=== PATIENT | male | born 1945 | race Caucasian/White ===

== ENCOUNTER 2016-12-05 08:25 | Emergency (ER) | payer OTHER ==
[~2016-12-05] VITALS: Ht 175.3 cm; Wt 77.0 kg
[~2016-12-05 08:25] MED LIST: AMLO2.5T PO; ASPI1TAB69 PO; ATOR1TAB18 PO; CHOL100025 CHEW; CLON0.2T PO; CLOP75TA PO; COEN200T PO; LORA-373 PO; LOSA25TA PO; MAGN200T PO; METO100T PO; OMEP40CA2 PO; POTA595T PO; SERT25TA83 PO; VITA500S3 SL
[2016-12-05 08:29] VITALS: BP 146/89; PULSE 83; RESP 16; TEMP 97.9; O2SAT 95
--- NOTE | 2016-12-05 09:08 | PD ---
HPI Chief Complaint: Skin Problem Time Seen by Provider: 08:54 Travel History International Travel<30 days: No Contact w/Intl Traveler<30days: No Traveled to known affect area: No History of Present Illness HPI This 71-year-old male is complaining of pain in his left leg. He says that about 2 weeks ago he banged his lower portion of his leg against the back of a motorcycle. He was quite painful at that time. Over a few days it seemed like the pain was getting better. He was able to walk on it. The area has become more painful and he has noted some redness around the site now. He has not had a fever at home though he says that the area affected feels warm. He has been told in the past that he has borderline diabetes. PFSH Past Medical History Hx Anticoagulant Therapy: Yes (PLAVIX) Arthritis: Yes Autoimmune Disease: No Anxiety: Yes Cancer: No Cardiac Catheterization: Yes Cardiovascular Problems: Yes (HTN, [place]) High Cholesterol: Yes Chest Pain: Yes Cerebrovascular Accident: Yes (TIA?) Coronary Artery Disease: Yes Diabetes: No Diminished Hearing: No Endocrine: No GERD: Yes Genitourinary: No Hypertension: Yes Immune Disorder: No Implanted Vascular Access Dvce: No Kidney Stones: Yes Psychiatric: No Reproductive: No Respiratory: Yes Myocardial Infarction: Yes (2011) Sleep Apnea: Yes (HAS AN APPOINTMENT W/ CARYL ) Thyroid Disease: No Past Surgical History Abdominal Surgery: Yes Cardiac Surgery: Yes (CARDIAC STENT PLACEMENT 4 YEARS AGO, CAROTID ENDARECTOMY ) Coronary Stent: Yes (2011 one stent) Genitourinary Surgery: Yes (PROSTATE) Hysterectomy: Yes Other Surgery: Yes ( LEFT INGUINAL HERNIA REPAIR) Social History Alcohol Use: Yes ("A BEER EVERY NOW AND THEN") Tobacco Use: No (QUIT: 2011) Substance Use: No Allergies-Medications (Allergen,Severity, Reaction): Coded Allergies: Lortab (Verified Allergy, Severe, Anaphylaxis, 12/05/16) Percocet (Verified Allergy, Unknown, 12/05/16) Reported Meds & Prescriptions Reported Meds & Active Scripts Active Bactrim DS (Sulfamethoxazole-Trimethoprim) 800-160 Mg Tab 1 Tab PO BID Keflex (Cephalexin) 500 Mg Cap 500 Mg PO Q6H Reported Clonidine (Clonidine HCl) 0.2 Mg Tab 0.2 Mg PO BID PRN Omeprazole 40 Mg Cap 40 Mg PO DAILY Lorazepam 0.5 Mg Tab 0.5 Mg PO HS PRN Magnesium 200 Mg Tab 200 Mg PO DAILY Potassium Gluconate 595 Mg Tab 595 Tab PO DAILY Amlodipine (Amlodipine Besylate) 2.5 Mg Tab 2.5 Mg PO DAILY Atorvastatin (Atorvastatin Calcium) 80 Mg Tab 80 Mg PO HS Clopidogrel (Clopidogrel Bisulfate) 75 Mg Tab 75 Mg PO DAILY Metoprolol Tartrate 100 Mg Tab 100 Mg PO BID Coenzyme Q10 (Ubidecarenone) 200 Mg Tab 200 Mg PO DAILY Vitamin D3 (Cholecalciferol) 1,000 Unit Chew 1,000 Units CHEW DAILY Vitamin B-12 (Cyanocobalamin) 500 Mcg Subl 500 Mcg SL DAILY Aspirin 81 Mg Tabdr 81 Mg PO DAILY Sertraline (Sertraline HCl) 25 Mg Tab 25 Mg PO DAILY Losartan (Losartan Potassium) 25 Mg Tab 25 Mg PO DAILY Review of Systems General / Constitutional: No: Fever, Chills Eyes: No: Diploplia, Blurred Vision HENT: No: Headaches Cardiovascular: No: Chest Pain or Discomfort, Palpitations Respiratory: No: Cough, Shortness of Breath Gastrointestinal: No: Vomiting Genitourinary: No: Urgency, Frequency Musculoskeletal: No: Myalgias Skin: Positive Rash Neurologic: No: Dizziness Hematologic/Lymphatic: No: Easy Bruising Physical Exam Narrative GENERAL: Well-developed male SKIN: Warm and dry. HEAD: Atraumatic. Normocephalic. EYES: Pupils equal and round. No scleral icterus. No injection or drainage. ENT: No nasal bleeding or discharge. Mucous membranes pink and moist. NECK: Trachea midline. No JVD. CARDIOVASCULAR: Regular rate and rhythm. No murmur appreciated. RESPIRATORY: No accessory muscle use. Clear to auscultation. Breath sounds equal bilaterally. GASTROINTESTINAL: Abdomen soft, non-tender, nondistended. Hepatic and splenic margins not palpable. MUSCULOSKELETAL: No obvious deformities. No clubbing. No cyanosis. No edema. The left lower leg at the affected extremity. There is a small abrasion over the anterior portion of the distal tibia. There is surrounding erythema and warmth and an area about 10 cm in diameter NEUROLOGICAL: Awake and alert. No obvious cranial nerve deficits. Motor grossly within normal limits. Normal speech. PSYCHIATRIC: Appropriate mood and affect; insight and judgment normal. Data Data Last Documented VS Vital Signs Date Time Temp Pulse Resp B/P Pulse Ox O2 Delivery O2 Flow Rate FiO2 12/05/16 09:22 75 16 165/84 95 Room Air 12/05/16 08:29 97.9 Orders Complete Blood Count With Diff (12/05/16 09:00) Basic Metabolic Panel (Bmp) (12/05/16 09:00) Tibia/Fibula (Ap/Lat) (12/05/16 09:00) Labs Laboratory Tests Test 12/05/16 09:15 White Blood Count 6.9 TH/MM3 Red Blood Count 4.47 MIL/MM3 Hemoglobin 14.3 GM/DL Hematocrit 43.0 % Mean Corpuscular Volume 96.1 FL Mean Corpuscular Hemoglobin 31.9 PG Mean Corpuscular Hemoglobin 33.2 % Concent Red Cell Distribution Width 12.8 % Platelet Count 187 TH/MM3 Mean Platelet Volume 7.1 FL Neutrophils (%) (Auto) 65.1 % Lymphocytes (%) (Auto) 23.7 % Monocytes (%) (Auto) 9.5 % Eosinophils (%) (Auto) 1.0 % Basophils (%) (Auto) 0.7 % Neutrophils # (Auto) 4.5 TH/MM3 Lymphocytes # (Auto) 1.6 TH/MM3 Monocytes # (Auto) 0.7 TH/MM3 Eosinophils # (Auto) 0.1 TH/MM3 Basophils # (Auto) 0.0 TH/MM3 CBC Comment DIFF FINAL Differential Comment Sodium Level 146 MEQ/L Potassium Level 4.5 MEQ/L Chloride Level 110 MEQ/L Carbon Dioxide Level 27.9 MEQ/L Anion Gap 8 MEQ/L Blood Urea Nitrogen 20 MG/DL Random Glucose 95 MG/DL Calcium Level 8.3 MG/DL [facility] Medical Decision Making Medical Screen Exam Complete: Yes Emergency Medical Condition: Yes Medical Record Reviewed: Yes Differential Diagnosis Differential includes cellulitis left leg, soft tissue injury, fracture Narrative Course X-rays negative for fracture. White count is only 6000. Impression is cellulitis of the left leg. He will be placed on Keflex and Bactrim. His blood sugar is normal Diagnosis Primary Impression: Cellulitis of left lower extremity Scripts Sulfamethoxazole-Trimethoprim (Bactrim DS)800-160 Mg Tab1 Tab PO BID #14 TAB Ref 0 Prov:Aaron Junior MD 12/05/16 Cephalexin (Keflex)500 Mg [id number] Mg PO Q6H #28 CAP Ref 0 Prov:MacMahon,Aaron MD 12/05/16 Disposition: 01 DISCHARGE HOME Condition: Stable Aaron Juinor MD Dec 05, 2016 09:08
[2016-12-05 09:22] VITALS: BP 165/84; PULSE 75; RESP 16; O2SAT 95
[2016-12-05 09:27] LABS: AUTOMATED NEUTROPHIL # 4.5 TH/MM3 (1.8-7.7); BASOPHIL % 0.7 % (0.0-2.0); EOSINOPHIL # 0.1 TH/MM3 (0-0.4); HEMO FLAGS DIFF FINAL; LYMPH % 23.7 % (9.0-44.0); LYMPHOCYTE # 1.6 TH/MM3 (1.0-4.8); MEAN CELL VOLUME 96.1 FL (80.0-100.0); MEAN CORPUSCULAR HEMOGLOBIN 31.9 PG (27.0-34.0); MEAN CORPUSCULAR HGB CONC 33.2 % (32.0-36.0); MONO % 9.5 % (0.0-8.0); NEUT % 65.1 % (16.0-70.0); PLATELET COUNT 187 TH/MM3 (150-450); RED BLOOD COUNT 4.47 MIL/MM3 (4.50-5.90); RED CELL DISTRIBUTION WIDTH 12.8 % (11.6-17.2); WHITE BLOOD COUNT 6.9 TH/MM3 (4.0-11.0)
--- NOTE | 2016-12-05 09:31 | RADHPO ---
EXAM DATE/TIME: 12/05/2016 09:18 [facility] COMPARISON: No previous studies available for comparison. INDICATIONS : Left lower leg laceration and pain, hit leg on sharp edge 2 weeks ago. MEDICAL HISTORY : None. SURGICAL HISTORY : None. ENCOUNTER: Initial ACUITY: 2 weeks PAIN SCORE: 1/10 LOCATION: Left lower tibia FINDINGS: Two view examination of the left tibia demonstrates no evidence of fracture or dislocation. Bony min eralization is normal. The soft tissue structures are intact. CONCLUSION: Negative for acute process. Vishnu Gage MD FACR on December 05, 2016 at 9:29 Board Certified Radiologist. This report was verified electronically.
[2016-12-05] MEDS ORDERED: BACT800T5 PO (09:41)
[2016-12-05] MEDS ORDERED: CEPH-460 PO (09:41)
[2016-12-05 10:04] LABS: BICARBONATE 27.9 MEQ/L (21.0-32.0); POTASSIUM 4.5 MEQ/L (3.5-5.1)
== END 2016-12-05 10:18 | disposition home or self-care (01) ==
LOC: PHED 08:25
DX: L03.116 Cellulitis of left lower limb (principal); Z79.01 Long term (current) use of anticoagulants; I10 Essential (primary) hypertension; I25.10 Atherosclerotic heart disease of native coronary artery without angina pectoris; I25.2 Old myocardial infarction; E78.00 Pure hypercholesterolemia, unspecified; W22.8XXA Striking against or struck by other objects, initial encounter
CPT/HCPCS: 73590; 80048; 85025; 99283

== ENCOUNTER 2016-12-31 09:43 | Inpatient (IN) | payer OTHER, MEDICARE ==
[2016-12-31] VITALS (10 sets, daily range): BP systolic 134–166; BP diastolic 70–84; PULSE 90–110; RESP 16–20; TEMP 96.5–99.3; O2SAT 88–96
[~2016-12-31] VITALS: Ht 175.3 cm; Wt 72.2 kg
[~2016-12-31 09:43] MED LIST changes: +BACT800T5 PO; +CEPH-460 PO
--- NOTE | 2016-12-31 10:26 | PD ---
HPI Chief Complaint: Respiratory Symptoms Time Seen by Provider: 10:07 Travel History International Travel<30 days: No Contact w/Intl Traveler<30days: No Traveled to known affect area: No History of Present Illness HPI This is a 71 year old male who presents to the emergency department with congestion, cough, and no appetite. His girlfriend was here one week ago with similar symptoms and was sent home with cold medicine told she didn't have pneumonia. He reports he has had a persistent productive cough with yellow sputum, associated with some subjective fevers, chills, and loose stools. He has been sick for about a week. He reports he has had no appetite and feels weak. Pt. does have 45 pack year smoking history. PFSH Past Medical History Hx Anticoagulant Therapy: Yes Arthritis: Yes Autoimmune Disease: No Anxiety: Yes Depression: Yes Cancer: No Cardiac Catheterization: Yes Cardiovascular Problems: Yes (htn on meds, [place] x 1 with one stent) High Cholesterol: Yes Chest Pain: Yes Cerebrovascular Accident: Yes (TIA?) Coronary Artery Disease: Yes Diabetes: No (borderline ) Diminished Hearing: No Endocrine: No GERD: Yes Genitourinary: No Hypertension: Yes Immune Disorder: No Implanted Vascular Access Dvce: No Kidney Stones: Yes Psychiatric: No Reproductive: No Respiratory: Yes Myocardial Infarction: Yes (2011) Sleep Apnea: Yes Thyroid Disease: No Past Surgical History Abdominal Surgery: Yes Cardiac Surgery: Yes (CARDIAC STENT PLACEMENT 4 YEARS AGO, CAROTID ENDARECTOMY ) Coronary Stent: Yes (2011 one stent) Genitourinary Surgery: Yes (PROSTATE) Hysterectomy: Yes Other Surgery: Yes ( LEFT INGUINAL HERNIA REPAIR) Social History Alcohol Use: Yes ("A BEER EVERY NOW AND THEN") Tobacco Use: No (QUIT: 2011) Substance Use: No Allergies-Medications (Allergen,Severity, Reaction): Coded Allergies: Lortab (Verified Allergy, Severe, Anaphylaxis, 12/31/16) Percocet (Verified Allergy, Unknown, 12/31/16) Reported Meds & Prescriptions Reported Meds & Active Scripts Active Reported Clonidine (Clonidine HCl) 0.2 Mg Tab 0.2 Mg PO BID PRN Omeprazole 40 Mg Cap 40 Mg PO DAILY Lorazepam 0.5 Mg Tab 0.5 Mg PO HS PRN Magnesium 200 Mg Tab 200 Mg PO HS Potassium Gluconate 595 Mg Tab 595 Tab PO HS Amlodipine (Amlodipine Besylate) 2.5 Mg Tab 2.5 Mg PO HS Atorvastatin (Atorvastatin Calcium) 80 Mg Tab 80 Mg PO HS Clopidogrel (Clopidogrel Bisulfate) 75 Mg Tab 75 Mg PO HS Metoprolol Tartrate 100 Mg Tab 100 Mg PO BID Coenzyme Q10 (Ubidecarenone) 200 Mg Tab 200 Mg PO DAILY Vitamin D3 (Cholecalciferol) 1,000 Unit Chew 1,000 Units CHEW DAILY Vitamin B-12 (Cyanocobalamin) 500 Mcg Subl 750 Mcg SL DAILY Aspirin 81 Mg Tabdr 81 Mg PO DAILY Sertraline (Sertraline HCl) 25 Mg Tab 25 Mg PO DAILY Losartan (Losartan Potassium) 25 Mg Tab 50 Mg PO DAILY Review of Systems Except as stated in HPI: all other systems reviewed are Neg Physical Exam Narrative GENERAL:Well appearing, no acute distress SKIN: Warm and dry. HEAD: Atraumatic. Normocephalic. EYES: Pupils equal and round. No injection or drainage. ENT: Moist mucous membranes NECK: Trachea midline. CARDIOVASCULAR: Regular rate and rhythm. No murmur appreciated. RESPIRATORY: Clear to auscultation. Breath sounds equal bilaterally. GASTROINTESTINAL: Abdomen soft, non-tender, nondistended. MUSCULOSKELETAL: No obvious deformities. NEUROLOGICAL: Awake and alert. No obvious cranial nerve deficits. Moving all extremities. PSYCHIATRIC: Appropriate mood and affect; insight and judgment normal. Data Data Last Documented VS Vital Signs Date Time Temp Pulse Resp B/P Pulse Ox O2 Delivery O2 Flow Rate FiO2 12/31/16 12:00 88 Nasal Cannula 3 12/31/16 11:27 112 20 12/31/16 11:26 98.4 166/74 Orders Chest, Pa & Lat (12/31/16 ) Basic Metabolic Panel (Bmp) (12/31/16 10:34) Complete Blood Count With Diff (12/31/16 10:34) Ecg Monitoring (12/31/16 10:34) Iv Access Insert/Monitor (12/31/16 10:34) Oximetry (12/31/16 10:34) Oxygen Administration (12/31/16 10:34) Methylprednisolone So Succ Inj (Solumedr (12/31/16 10:45) Albuterol-Ipratropium Neb (Duoneb Neb) (12/31/16 10:45) Sodium Chloride 0.9% Flush (Ns Flush) (12/31/16 10:45) B-Type Natriuretic Peptide (12/31/16 10:34) Ct Pulmonary Angiogram (12/31/16 ) Iohexol 350 Inj (Omnipaque 350 Inj) (12/31/16 13:15) Labs Laboratory Tests Test 12/31/16 10:35 White Blood Count 4.7 TH/MM3 Red Blood Count 4.02 MIL/MM3 Hemoglobin 13.1 GM/DL Hematocrit 38.5 % Mean Corpuscular Volume 95.7 FL Mean Corpuscular Hemoglobin 32.6 PG Mean Corpuscular Hemoglobin 34.1 % Concent Red Cell Distribution Width 12.6 % Platelet Count 141 TH/MM3 Mean Platelet Volume 7.2 FL Neutrophils (%) (Auto) 58.5 % Lymphocytes (%) (Auto) 25.7 % Monocytes (%) (Auto) 15.1 % Eosinophils (%) (Auto) 0.1 % Basophils (%) (Auto) 0.6 % Neutrophils # (Auto) 2.8 TH/MM3 Lymphocytes # (Auto) 1.2 TH/MM3 Monocytes # (Auto) 0.7 TH/MM3 Eosinophils # (Auto) 0.0 TH/MM3 Basophils # (Auto) 0.0 TH/MM3 CBC Comment DIFF FINAL Differential Comment Sodium Level 142 MEQ/L Potassium Level 4.1 MEQ/L Chloride Level 108 MEQ/L Carbon Dioxide Level 25.6 MEQ/L Anion Gap 8 MEQ/L Blood Urea Nitrogen 23 MG/DL Creatinine 1.10 MG/DL Estimat Glomerular Filtration 66 ML/MIN Rate Random Glucose 90 MG/DL Calcium Level 8.1 MG/DL B-Type Natriuretic Peptide 15 PG/ML MDM Medical Decision Making Medical Screen Exam Complete: Yes Emergency Medical Condition: Yes Interpretation(s) Afebrile, tachycardic, hypertensive, hypoxic No leukocytosis Monocytic shift Electrolytes within normal limits BNP is 15 Differential Diagnosis COPD exacerbation, congestive heart failure, pneumonia, pulmonary embolism, pulmonary hypertension Narrative Course This is a 71-year-old male who presents to the emergency department with cough, some hemoptysis and some shortness of breath. Patient is hypoxic on room air to 88%. He was placed in a monitor and an IV was established. Labs are obtained which were all reassuring with a monocytic shift to suggest viral etiology of his symptoms. Chest x-ray was negative for acute infiltrate. His vital signs seemed to be disproportionate to his physical exam findings I did obtain a CT pulmonary angiogram which was negative for PE or occult pneumonia. Patient was treated with steroids and DuoNeb's but despite this continued to be hypoxic particularly after ambulation. Patient will be admitted for COPD exacerbation. Diagnosis Primary Impression: COPD exacerbation Admitting Information Admitting Physician Requests: Admit Lisette Serrato MD Dec 31, 2016 10:25
[2016-12-31] MEDS ORDERED: methylPREDNISolone SOD SUCC 125 MG/2 ML VIAL IVP ONE (10:45)
[2016-12-31] MEDS ORDERED: SODIUM CHLORIDE 0.9% FLUSH 5 ML FLUSH IVF PRN ×2 (10:45→14:45)
[2016-12-31] MEDS: RESP: ALBUTEROL 2.5 MG/IPRATROPIUM 0.5 MG NEB (SCH) INH ×4 (10:46→23:45)
[2016-12-31 10:53] LABS: AUTOMATED NEUTROPHIL # 2.8 TH/MM3 (1.8-7.7); BASOPHIL % 0.6 % (0.0-2.0); EOSINOPHIL % 0.1 % (0.0-4.0); HEMATOCRIT 38.5 % (39.0-51.0); HEMO FLAGS DIFF FINAL; LYMPH % 25.7 % (9.0-44.0); LYMPHOCYTE # 1.2 TH/MM3 (1.0-4.8); MEAN CELL VOLUME 95.7 FL (80.0-100.0); MEAN CORPUSCULAR HEMOGLOBIN 32.6 PG (27.0-34.0); MEAN CORPUSCULAR HGB CONC 34.1 % (32.0-36.0); MONO % 15.1 % (0.0-8.0); NEUT % 58.5 % (16.0-70.0); PLATELET COUNT 141 TH/MM3 (150-450); RED BLOOD COUNT 4.02 MIL/MM3 (4.50-5.90); RED CELL DISTRIBUTION WIDTH 12.6 % (11.6-17.2); WHITE BLOOD COUNT 4.7 TH/MM3 (4.0-11.0)
[2016-12-31 10:59] LABS: POTASSIUM 4.1 MEQ/L (3.5-5.1)
[2016-12-31 11:01] LABS: BICARBONATE 25.6 MEQ/L (21.0-32.0)
--- NOTE | 2016-12-31 12:23 | RADHPO ---
EXAM DATE/TIME: 12/31/2016 11:36 [facility] COMPARISON: CHEST SINGLE AP, June 19, 2016, 21:48. INDICATIONS : Short of breath MEDICAL HISTORY : Heart attack SURGICAL HISTORY : Cardiac stent ENCOUNTER: Initial ACUITY: 4 - 6 days PAIN SCORE: 2/10 LOCATION: Bilateral chest FINDINGS: PA and lateral views of the chest demonstrate linear atelectasis or scarring at the lung bases. No ef fusion. No pneumothorax. Heart size normal. Tortuous aorta. CONCLUSION: 1. Linear atelectasis or scarring at the lung bases. No effusion. Findings similar to May 2016. Gary Bailey MD on December 31, 2016 at 12:20 Board Certified Radiologist. This report was verified electronically.
[2016-12-31] MEDS ORDERED: IOHEXOL 350 MG/ML 10 ML VIAL (for RAD DIAG) IV ONE (13:15)
--- NOTE | 2016-12-31 13:21 | RADHPO ---
EXAM DATE/TIME: 12/31/2016 13:05 [facility] COMPARISON: No previous studies available for comparison. INDICATIONS : Cough and congestion. Evaluate for embolism. IV CONTRAST: 65 cc Omnipaque 350 (iohexol) IV RADIATION DOSE: 11.67 CTDIvol (mGy) MEDICAL HISTORY : Hypertension. Cardiovascular disease SURGICAL HISTORY : Coronary artery stent. Carotid endarterectomy. ENCOUNTER: Initial ACUITY: 4 - 6 days PAIN SCALE: 0/10 LOCATION: chest TECHNIQUE: Volumetric scanning of the chest was performed using a pulmonary embolism protocol MIP images were re constructed. Using automated exposure control and adjustment of the mA and/or kV according to patien t size, radiation dose was kept as low as reasonably achievable to obtain optimal diagnostic quality images. FINDINGS: Mild peribronchial thickening is present worse in the right lower lobe suggesting chronic bronchitis. Minimal left lingular disease is noted. There is no axillary adenopathy. There is very minimal mediastinal adenopathy. The largest node heather sures 1 cm. There is no central pulmonary emboli. The portion of the liver and spleen identified are free of focal defects. Granulomas are present in the spleen. CONCLUSION: Negative for central pulmonary emboli. Minimal nonspecific mediastinal adenopathy. Vishnu Gage MD FACR on December 31, 2016 at 13:18 Board Certified Radiologist. This report was verified electronically.
[2016-12-31] MEDS ORDERED: AZITHROMYCIN 250 MG TAB PO ONE ×3 (14:00→15:02)
[2016-12-31] MEDS ORDERED: RESP: ALBUTEROL 2.5 MG/3 ML NEB (PRN) INH (14:45)
[2016-12-31] MEDS ORDERED: LORazepam 0.5 MG TAB PO PRN (14:45)
[2016-12-31] MEDS ORDERED: PILL SPLITTER OTHER PRN (15:15)
[2016-12-31] MEDS ORDERED: ENOXAPARIN SODIUM 40 MG/0.4 ML SYRINGE SQ SCH (16:00)
[2016-12-31 17:34] LABS: BLOOD GAS CARBOXYHEMOGLOBIN 1.5 % (0-4); BLOOD GAS HCO3 21 mmol/L (22-26); BLOOD GAS METHEMOGLOBIN 1.1 % (0-2); BLOOD GAS O2 HGB SATURATION 89 % (90-100); BLOOD GAS OXYGEN CONTENT 17.3 Vol % (12.0-20.0); BLOOD GAS PCO2 34 mmHG (38-42); BLOOD GAS PO2 63 mmHG (61-120); BLOOD GAS TOTAL HGB 13.9 G/DL (12.0-16.0); TEMP CORR TO 98.6
--- NOTE | 2016-12-31 17:34 | HHI.HP ---
[facility] Primary [facility] Physician John Crandall MD Admission Diagnosis copd exacerbation Diagnoses: (1) Hypoxia Diagnosis: Principal (2) Cough Diagnosis: Principal (3) Hypertension (4) Hyperlipidemia Diagnosis: Secondary (5) Coronary artery disease Diagnosis: Secondary Chief Complaint: Cough, congestion Travel History International Travel<30 Days: No Contact w/Intl Traveler <30 Da: No Traveled to Known Affected Are: No History of Present Illness 71-year-old male with known history of hypertension, coronary artery disease, hyperlipidemia, history of tobacco use who presented to hospital because of cough and congestion. Patient states her last 6 days he has had upper respiratory symptoms to include cough, congestion, phlegm production. He had caught the cold because his girlfriend had went to the ER and got treated for upper respiratory infection and he thought that he caught it from her. The patient did go to local pharmacy recommended cold medication that would not interfere in his blood pressure. He states while using that medication he had an episode where he states that his blood pressure did drop. But because the patient had continued cough, congestion and green phlegm production without any improvement he came to emergency department for evaluation. Patient had complete workup which did not indicate any fever, no leukocytosis, chest x-rays without any abnormality, CT scan is without any abnormality. Documentation in the ER does indicate that there was an episode of hypoxia of O2 sat of 88%. Because of that reason is recommended by the ER doctor that the patient be admitted for further evaluation and management. Patient denies any fever, chills, shortness of breath, dyspnea, chest pain, abdominal pain, nausea, vomiting, diarrhea, constipation. Review of Systems Constitutional: DENIES: Diaphoretic episodes, Fatigue, Fever, Weight gain, Weight loss, Chills, Dizziness, Change in appetite, Night Sweats Eyes: DENIES: Blurred vision, Diplopia, Eye inflammation, Eye pain, Vision loss , Double Vision Ears, nose, mouth, throat: DENIES: Vertigo, Nasal discharge, Throat pain, Ear Pain, Running Nose, Sinus Pain Respiratory: COMPLAINS OF: Cough, Sputum production, DENIES: Apneas, Snoring, Wheezing, Hemoptysis, Shortness of breath Cardiovascular: DENIES: Chest pain, Palpitations, Syncope, Dyspnea on Exertion , Lower Extremity Edema, Orthopnea Gastrointestinal: DENIES: Abdominal pain, Black stools, Bloody stools, Constipation, Diarrhea, Nausea, Vomiting, Difficulty Swallowing, Anorexia Neurologic: DENIES: Abnormal gait, Headache, Localized weakness, Paresthesias, Seizures, Speech Problems, Tremor, Poor Balance Past Family Social History Past Medical History Hypertension Hyperlipidemia Coronary artery disease Carotid artery disease Benign prostatic hypertrophy Past Surgical History Cardiac catheterization with stenting Left carotid endarterectomy Left inguinal heart repair TURP Reported Medications Reported Meds & Active Scripts Active Reported Clonidine (Clonidine HCl) 0.2 Mg Tab 0.2 Mg PO BID PRN Omeprazole 40 Mg Cap 40 Mg PO DAILY Lorazepam 0.5 Mg Tab 0.5 Mg PO HS PRN Magnesium 200 Mg Tab 200 Mg PO HS Potassium Gluconate 595 Mg Tab 595 Tab PO HS Amlodipine (Amlodipine Besylate) 2.5 Mg Tab 2.5 Mg PO HS Atorvastatin (Atorvastatin Calcium) 80 Mg Tab 80 Mg PO HS Clopidogrel (Clopidogrel Bisulfate) 75 Mg Tab 75 Mg PO HS Metoprolol Tartrate 100 Mg Tab 100 Mg PO BID Coenzyme Q10 (Ubidecarenone) 200 Mg Tab 200 Mg PO DAILY Vitamin D3 (Cholecalciferol) 1,000 Unit Chew 1,000 Units CHEW DAILY Vitamin B-12 (Cyanocobalamin) 500 Mcg Subl 750 Mcg SL DAILY Aspirin 81 Mg Tabdr 81 Mg PO DAILY Sertraline (Sertraline HCl) 25 Mg Tab 25 Mg PO DAILY Losartan (Losartan Potassium) 25 Mg Tab 50 Mg PO DAILY Allergies: Coded Allergies: Lortab (Verified Allergy, Severe, Anaphylaxis, 12/31/16) Percocet (Verified Allergy, Unknown, 12/31/16) Family History Reviewed is significant for mother having Alzheimer's, father and brother with kidney disease Social History Patient quit smoking 8 years ago, prior to that he smoked one pack a cigarettes a day since he was 19 years all. Denies any alcohol or illicit drugs Physical Exam Vital Signs Vital Signs Date Time Temp Pulse Resp B/P Pulse Ox O2 Delivery O2 Flow Rate FiO2 12/31/16 15:44 90 20 153/76 95 Nasal Cannula 3 12/31/16 14:25 92 20 135/72 93 Nasal Cannula 3 12/31/16 12:00 88 Nasal Cannula 3 12/31/16 11:27 112 20 95 Nasal Cannula 2 12/31/16 11:26 98.4 110 20 166/74 95 Room Air 12/31/16 10:49 96 Nasal Cannula 2.00 12/31/16 10:45 95 Nasal Cannula 2 12/31/16 10:45 95 Nasal Cannula 2 12/31/16 10:04 92 16 93 Room Air 12/31/16 09:50 99.3 98 16 134/84 89 Physical Exam GENERAL: Well-developed, well-nourished, in no acute distress. alert and orientated HEENT: Head is normocephalic without any lesions or masses noted. Facial features are symmetric. Eyes: Pupils equal round reactive to light. Extraocular muscles are intact. Conjunctivae were clear. Oropharyngeal: Pharynx without any erythema edema. Tongue is midline without deviation. Buccal mucosa is moist without any masses or lesions NECK: Supple without any masses. Trachea midline no deviation. No JVD, no bruits are appreciated CARDIAC: Regular rhythm, regular rate. S1/S2 are heard. No murmurs gallops or rubs. LUNGS: Clear to auscultation bilaterally. No wheeze, rhonchi or rales. No use of accessory muscles on inspiration or expiration. ABDOMEN: Soft, nontender. Nondistended. Bowel sounds heard in all 4 quadrants. No organomegaly or masses. Negative rebound, negative guarding EXTREMITIES: No edema, pulses are equal bilaterally. No cyanosis or clubbing NEUROLOGY: Mood and affect appear appropriate. Cranial nerves II through XII grossly intact. Muscle strength 5/5 in upper and lower extremities bilaterally. Deep tendon reflexes are 2+ in upper and lower extremities bilaterally. Laboratory Laboratory Tests Test 12/31/16 10:35 White Blood Count 4.7 Red Blood Count 4.02 Hemoglobin 13.1 Hematocrit 38.5 Mean Corpuscular Volume 95.7 Mean Corpuscular Hemoglobin 32.6 Mean Corpuscular Hemoglobin 34.1 Concent Red Cell Distribution Width 12.6 Platelet Count 141 Mean Platelet Volume 7.2 Neutrophils (%) (Auto) 58.5 Lymphocytes (%) (Auto) 25.7 Monocytes (%) (Auto) 15.1 Eosinophils (%) (Auto) 0.1 Basophils (%) (Auto) 0.6 Neutrophils # (Auto) 2.8 Lymphocytes # (Auto) 1.2 Monocytes # (Auto) 0.7 Eosinophils # (Auto) 0.0 Basophils # (Auto) 0.0 CBC Comment DIFF FINAL Differential Comment Sodium Level 142 Potassium Level 4.1 Chloride Level 108 Carbon Dioxide Level 25.6 Anion Gap 8 Blood Urea Nitrogen 23 Creatinine 1.10 Estimat Glomerular Filtration 66 Rate Random Glucose 90 Calcium Level 8.1 B-Type Natriuretic Peptide 15 Result Diagram: 12/31/16 1035 12/31/16 1035 Imaging Last Impressions Chest X-Ray 12/31/16 0000 Signed Impressions: Service Date/Time: Saturday, December 31, 2016 11:36 - CONCLUSION: 1. Linear atelectasis or scarring at the lung bases. No effusion. Findings similar to May 2016. Gary Bailey MD CT Angiography 12/31/16 0000 Signed Impressions: Service Date/Time: Saturday, December 31, 2016 13:05 - CONCLUSION: Negative for central pulmonary emboli. Minimal nonspecific mediastinal adenopathy. Vishnu Gage MD FACR Assessment and Plan Assessment and Plan Hypoxia, unknown etiology Reviewing medical records and emergency department are quite conflicting with O2 saturations of 93% on room air, and 88% on 3 L. We'll check arterial blood gas Chest x-ray does indicate some atelectasis or scarring in the lung bases Chest CT shows peribronchial thickening right lobe suggesting chronic bronchitis Start incentive spirometry Chronic bronchitis Could have some underlying COPD, will need outpatient follow-up with primary medical doctor and forestry technical officer for PFT Continue duo nebs Start Mucinex Continue O2 supplementation maintain O2 sats greater 92% Continue Solu-Medrol 60 mg every 6 hours Hypertension, hyperlipidemia, coronary artery disease Continue home medications DVT prevention Lovenox Written by Collin Londono PA-C, acting as scribe for Dr. Bailey on 12/31/16 at 1710. The documentation accurately reflects the work and decisions performed face-to- face by Dr. Bailey on 12/31/16 at 1710. Physician Certification 2 Midnight Certification Type: Admission for Inpatient Services Order for Inpatient Services The services are ordered in accordance with Medicare regulations or non- Medicare payer requirements, as applicable. In the case of services not specified as inpatient-only, they are appropriately provided as inpatient services in accordance with the 2-midnight benchmark. Estimated LOS (days): 2 days is the estimated time the patient will need to remain in the hospital, assuming treatment plan goals are met and no additional complications. Post-Hospital Plan: Home Problem Qualifiers (1) Hypertension: Qualified Code: I15.9 - Secondary hypertension (2) Hyperlipidemia: Qualified Code: E78.5 - Hyperlipidemia, unspecified hyperlipidemia type (3) Coronary artery disease: Qualified Code: I25.10 - Coronary artery disease, angina presence unspecified, unspecified vessel or lesion type, unspecified whether ambler or transplanted heart Collin Londono Dec 31, 2016 17:34 Antonette Bailey MD Jan 01, 2017 08:14
[2016-12-31 17:35] LABS: CRITICAL VALUE YES; DRAW SITE LT RADIAL; FIO2 21 %; NUMBER OF ARTERIAL PUNCTURES 1; STAT YES; ULNAR PULSE PRESENT
[2016-12-31] MEDS: methylPREDNISolone SOD SUCC 125 MG/2 ML VIAL IVP SCH ×2 (18:16→23:04)
[2016-12-31] MEDS ORDERED: amLODIPine BESYLATE 5 MG TAB PO SCH (21:00)
[2016-12-31] MEDS ORDERED: CLOPIDOGREL 75 MG TAB PO SCH (21:00)
[2016-12-31] MEDS ORDERED: ATORVASTATIN 40 MG TAB PO SCH (21:00)
[2016-12-31] MEDS: guaiFENesin E.R. 600 MG TAB PO SCH (21:07)
[2016-12-31] MEDS: METOPROLOL TARTRATE 100 MG TAB PO SCH (21:07)
[2016-12-31] MEDS: SODIUM CHLORIDE 0.9% FLUSH 5 ML FLUSH IVF SCH (21:10)
[2017-01-01] VITALS: BP 128/76; PULSE 64; RESP 20; TEMP 96; O2SAT 95
[2017-01-01] MEDS: RESP: ALBUTEROL 2.5 MG/IPRATROPIUM 0.5 MG NEB (SCH) INH ×3 (04:19→11:38)
[2017-01-01] MEDS: methylPREDNISolone SOD SUCC 125 MG/2 ML VIAL IVP SCH ×2 (05:13→10:20)
[2017-01-01 08:00] VITALS: BP 139/82; PULSE 83; RESP 18; TEMP 96.9; O2SAT 92
[2017-01-01 08:08] VITALS: O2SAT 90
[2017-01-01] MEDS: SODIUM CHLORIDE 0.9% FLUSH 5 ML FLUSH IVF SCH (08:49)
[2017-01-01] MEDS: METOPROLOL TARTRATE 100 MG TAB PO SCH (08:50)
[2017-01-01] MEDS ORDERED: PANTOPRAZOLE SOD 40 MG DELAYED RELEASE TAB PO SCH (09:00)
[2017-01-01] MEDS ORDERED: TIOTROPIUM BROMIDE 18 MCG INH INH SCH (09:00)
[2017-01-01] MEDS ORDERED: AZITHROMYCIN 250 MG TAB PO SCH (09:00)
[2017-01-01] MEDS ORDERED: SERTRALINE HCL 50 MG TAB PO SCH (09:00)
[2017-01-01] MEDS ORDERED: LOSARTAN 50 MG TAB PO SCH (09:00)
[2017-01-01] MEDS ORDERED: ASPIRIN EC 81 MG TABEC PO SCH (09:00)
[2017-01-01] MEDS: guaiFENesin E.R. 600 MG TAB PO SCH (10:18)
--- NOTE | 2017-01-01 11:34 | HHI.PR ---
Subjective Remarks Patient examined today with Dr. Bailey. Patient states that he is feeling better. Still has a scratchy throat. Dr. Bailey discussed underlying lung disease with the patient, possible bilateral versus bacterial infection. Patient no longer having any signs of hypoxia. Walk study is performed which did not indicate any need for oxygen Objective Vitals Vital Signs Date Time Temp Pulse Resp B/P Pulse Ox O2 Delivery O2 Flow Rate FiO2 01/01/17 08:08 90 21 01/01/17 08:00 96.9 83 18 139/82 92 01/01/17 00:00 96.0 64 20 128/76 95 12/31/16 20:00 96.5 97 20 139/70 94 12/31/16 19:40 94 Nasal Cannula 3.00 12/31/16 17:46 97.3 104 18 147/83 92 12/31/16 15:44 90 20 153/76 95 Nasal Cannula 3 12/31/16 14:25 92 20 135/72 93 Nasal Cannula 3 12/31/16 12:00 88 Nasal Cannula 3 I/O 12/31/16 12/31/16 12/31/16 01/01/17 01/01/17 01/01/17 07:00 15:00 23:00 07:00 15:00 23:00 Intake Total 870 ml 60 ml Output Total 0 ml 700 ml Balance 870 ml -640 ml Intake Oral 870 ml 60 ml Output Urine Total 0 ml 700 ml # Voids 0 # Bowel Movements 0 0 Result Diagram: 12/31/16 1035 12/31/16 1035 Objective Remarks GENERAL: Well-developed, well-nourished, in no acute distress. alert and orientated HEENT: Head is normocephalic without any lesions or masses noted. Facial features are symmetric. Eyes: Extraocular muscles are intact. Conjunctivae were clear. NECK: Supple without any masses. Trachea midline no deviation. No JVD, CARDIAC: Regular rhythm, regular rate. S1/S2 are heard. No murmurs gallops or rubs. LUNGS: Clear to auscultation bilaterally. No wheeze, rhonchi or rales. No use of accessory muscles on inspiration or expiration. ABDOMEN: Soft, nontender. Nondistended. Bowel sounds heard in all 4 quadrants. No organomegaly or masses. Negative rebound, negative guarding EXTREMITIES: No edema, pulses are equal bilaterally. No cyanosis or clubbing NEUROLOGY: Mood and affect appear appropriate. Cranial nerves II through XII grossly intact. Moving all extremities, speech is clear Urinary Catheter: No Vascular Central Line Catheter: No A/P Assessment and Plan Hypoxia, unknown etiology, resolved Reviewing medical records and emergency department are quite conflicting with O2 saturations of 93% on room air, and 88% on 3 L. ABG shows pH 7.40, PCO2 34, PO2 63, bicarbonate 21, O2 sat 89 Chest x-ray does indicate some atelectasis or scarring in the lung bases Chest CT shows peribronchial thickening right lobe suggesting chronic bronchitis Continue incentive spirometry Walk study was performed and did not indicate any need for home oxygen. Chronic bronchitis Could have some underlying COPD, will need outpatient follow-up with primary medical doctor and vac press operator for PFT Continue duo nebs Continue Mucinex Continue O2 supplementation maintain O2 sats greater 92% Continue Solu-Medrol 60 mg every 6 hours Hypertension, hyperlipidemia, coronary artery disease Continue home medications DVT prevention Lovenox Written by Collin Londono PA-C, acting as scribe for Dr. Bailey on 01/01/17 at 1130. The documentation accurately reflects the work and decisions performed face-to- face by Dr. Bailey on 01/01/17 at 1130. Discharge Planning Discharge home in stable condition Activity: Ad ruthy. Diet: Healthy heart diet Medications per medication reconciliation Follow-up primary medical doctor in one week. Patient will likely need outpatient studies to include PFTs to evaluate for COPD Collin Londono Jan 01, 2017 11:34 Antonette Bailey MD Jan 01, 2017 12:20
[2017-01-01] MEDS ORDERED: MUCI600T PO (11:36)
[2017-01-01] MEDS ORDERED: VENTAER INH (11:36)
[2017-01-01] MEDS ORDERED: PRED5PAK PO (11:36)
[2017-01-01] MEDS ORDERED: ZITH250T PO (11:36)
--- NOTE | 2017-01-01 11:37 | HHI.DCPOC ---
Discharge Care Plan Diagnosis: (1) Hypoxia (2) Chronic bronchitis Goals to Promote Your Health * To prevent worsening of your condition and complications * To maintain your health at the optimal level Directions to Meet Your Goals Take your medications as prescribed Follow your dietary instruction Follow activity as directed Keep your appointments as scheduled Take your immunizations and boosters as scheduled If your symptoms worsen call your PCP, if no PCP go to Urgent Care Center or Emergency Room Smoking is Dangerous to Your Health. Avoid second hand smoke Call the 24-hour hour crisis hotline for domestic abuse at Collin Londono Jan 01, 2017 11:37
[2017-01-01 12:00] VITALS: BP 154/78; PULSE 92; RESP 20; TEMP 97.2; O2SAT 92
== END 2017-01-01 13:01 | disposition home or self-care (01) | DRG 206 ==
LOC: PHED 09:43 → PHEDA 13:54 → PH3A 16:15
PROVIDERS: ADMIT Family Medicine; ATTEND Family Medicine
PROC: 3E0F7GC Introduction of Other Therapeutic Substance into Respiratory Tract, Via Natural or Artificial Opening (ICD-10-PCS; principal; 2016-12-31)
DX: R09.02 Hypoxemia (principal); J44.9 Chronic obstructive pulmonary disease, unspecified; I10 Essential (primary) hypertension; J98.11 Atelectasis; G47.30 Sleep apnea, unspecified; I25.2 Old myocardial infarction; K21.9 Gastro-esophageal reflux disease without esophagitis; I25.10 Atherosclerotic heart disease of native coronary artery without angina pectoris; E78.00 Pure hypercholesterolemia, unspecified; E78.5 Hyperlipidemia, unspecified; N40.0 Benign prostatic hyperplasia without lower urinary tract symptoms; Z95.5 Presence of coronary angioplasty implant and graft; Z87.891 Personal history of nicotine dependence; Z87.442 Personal history of urinary calculi; Z86.73 Personal history of transient ischemic attack (TIA), and cerebral infarction without residual deficits
CPT/HCPCS: 36600; 71020; 71275; 80048; 82805; 83880; 85025; 94150; 94620; 94640; 94664; 96374; J2930; Q9967

== ENCOUNTER 2017-03-31 10:04 | Emergency (ER) | payer MEDICARE, OTHER ==
[~2017-03-31] VITALS: Ht 175.3 cm; Wt 77.0 kg
[~2017-03-31 10:04] MED LIST changes: -BACT800T5 PO; -CEPH-460 PO; +MUCI600T PO; +PRED5PAK PO; +VENTAER INH; +ZITH250T PO
[2017-03-31 10:11] VITALS: BP 140/71; PULSE 54; RESP 16; TEMP 97.6; O2SAT 97
--- NOTE | 2017-03-31 10:33 | PD ---
HPI Chief Complaint: General Weakness Time Seen by Provider: 10:24 Travel History International Travel<30 days: No Contact w/Intl Traveler<30days: No Traveled to known affect area: No History of Present Illness HPI This patient complains of generalized weakness and diarrhea. He says he's had diarrhea on and off for 2 months. Has not mentioned to his doctor. Today he decided to come to the emergency room for it. He has no nausea or vomiting or fever or abdominal pain. Severity is mild to moderate. No alleviating factors. PFSH Past Medical History Hx Anticoagulant Therapy: Yes (ASA 81 MG. DAILY AND PLAVIX) Arthritis: Yes Autoimmune Disease: No Anxiety: Yes Depression: Yes Cancer: No Cardiac Catheterization: Yes Cardiovascular Problems: Yes (PA, HTN, CHOL, STENT) High Cholesterol: Yes Chest Pain: Yes Congestive Heart Failure: No Cerebrovascular Accident: Yes (TIA?) Coronary Artery Disease: Yes Diabetes: No Diminished Hearing: No Endocrine: No GERD: Yes Genitourinary: No Hypertension: Yes Immune Disorder: No Implanted Vascular Access Dvce: No Kidney Stones: Yes Psychiatric: No Reproductive: No Respiratory: Yes Myocardial Infarction: Yes (2011) Sleep Apnea: Yes Thyroid Disease: No Influenza Vaccination: Yes ?: Not Past Surgical History Abdominal Surgery: Yes Cardiac Surgery: Yes (CARDIAC STENT PLACEMENT 4 YEARS AGO, CAROTID ENDARECTOMY ) Coronary Stent: Yes (2011 one stent) Eye Surgery: Yes (RIGHT CATARACTS) Genitourinary Surgery: Yes (PROSTATE) Hysterectomy: Yes Other Surgery: Yes ( LEFT INGUINAL HERNIA REPAIR) Social History Alcohol Use: Yes ("A BEER EVERY NOW AND THEN") Tobacco Use: No (QUIT: 2011) Substance Use: No Allergies-Medications (Allergen,Severity, Reaction): Coded Allergies: Lortab (Verified Allergy, Severe, Anaphylaxis, 03/31/17) Percocet (Verified Allergy, Unknown, 03/31/17) Reported Meds & Prescriptions Reported Meds & Active Scripts Active Ventolin Hfa 18 GM Inh (Albuterol Sulfate) 90 Mcg/Act Aer 2 Puff INH Q4-6H PRN Reported Clonidine (Clonidine HCl) 0.2 Mg Tab 0.2 Mg PO BID PRN Omeprazole 40 Mg Cap 40 Mg PO DAILY Lorazepam 0.5 Mg Tab 0.5 Mg PO HS PRN Magnesium 200 Mg Tab 200 Mg PO HS Potassium Gluconate 595 Mg Tab 595 Tab PO HS Amlodipine (Amlodipine Besylate) 2.5 Mg Tab 2.5 Mg PO HS Atorvastatin (Atorvastatin Calcium) 80 Mg Tab 80 Mg PO HS Clopidogrel (Clopidogrel Bisulfate) 75 Mg Tab 75 Mg PO HS Metoprolol Tartrate 100 Mg Tab 100 Mg PO BID Coenzyme Q10 (Ubidecarenone) 200 Mg Tab 200 Mg PO DAILY Vitamin D3 (Cholecalciferol) 1,000 Unit Chew 1,000 Units CHEW DAILY Vitamin B-12 (Cyanocobalamin) 500 Mcg Subl 750 Mcg SL DAILY Aspirin 81 Mg Tabdr 81 Mg PO DAILY Sertraline (Sertraline HCl) 25 Mg Tab 25 Mg PO DAILY Losartan (Losartan Potassium) 25 Mg Tab 50 Mg PO DAILY Review of Systems General / Constitutional: No: Fever Eyes: No: Visual changes HENT: No: Headaches Cardiovascular: No: Chest Pain or Discomfort Respiratory: No: Shortness of Breath Gastrointestinal: Positive: Diarrhea, No: Abdominal Pain Genitourinary: No: Dysuria Musculoskeletal: Positive: Weakness, No: Pain Skin: No Rash Neurologic: Positive: Weakness Psychiatric: No: Depression Endocrine: No: Polydipsia Hematologic/Lymphatic: No: Easy Bruising Physical Exam Narrative GENERAL: Well-nourished, well-developed patient in no apparent distress. SKIN: Focused skin assessment reveals no rash and nodules. Skin is Warm and dry. HEAD: Atraumatic. Normocephalic. EYES: Pupils equal and round. No scleral icterus. No injection or drainage. ENT: No nasal bleeding or discharge. Mucous membranes pink and moist. NECK: Trachea midline. No JVD. CARDIOVASCULAR: Regular rate and rhythm. No murmur appreciated. RESPIRATORY: No accessory muscle use. Clear to auscultation. Breath sounds equal bilaterally. GASTROINTESTINAL: Abdomen soft, non-tender, nondistended. Hepatic and splenic margins not palpable. MUSCULOSKELETAL: No obvious deformities. No clubbing. No cyanosis. No edema. NEUROLOGICAL: Awake and alert. No obvious cranial nerve deficits. Motor grossly within normal limits. Normal speech. PSYCHIATRIC: Appropriate mood and affect; insight and judgment normal. Data Data Last Documented VS Vital Signs Date Time Temp Pulse Resp B/P Pulse Ox O2 Delivery O2 Flow Rate FiO2 03/31/17 10:58 84 139/75 97 03/31/17 10:11 97.6 16 Orders Iv Access Insert/Monitor (03/31/17 10:30) Complete Blood Count With Diff (03/31/17 10:30) Basic Metabolic Panel (Bmp) (03/31/17 10:30) Labs Laboratory Tests Test 03/31/17 10:40 White Blood Count 7.4 TH/MM3 Red Blood Count 4.28 MIL/MM3 Hemoglobin 13.8 GM/DL Hematocrit 40.5 % Mean Corpuscular Volume 94.8 FL Mean Corpuscular Hemoglobin 32.2 PG Mean Corpuscular Hemoglobin 34.0 % Concent Red Cell Distribution Width 12.6 % Platelet Count 181 TH/MM3 Mean Platelet Volume 7.1 FL Neutrophils (%) (Auto) 69.1 % Lymphocytes (%) (Auto) 22.1 % Monocytes (%) (Auto) 7.5 % Eosinophils (%) (Auto) 0.9 % Basophils (%) (Auto) 0.4 % Neutrophils # (Auto) 5.1 TH/MM3 Lymphocytes # (Auto) 1.6 TH/MM3 Monocytes # (Auto) 0.6 TH/MM3 Eosinophils # (Auto) 0.1 TH/MM3 Basophils # (Auto) 0.0 TH/MM3 CBC Comment DIFF FINAL Differential Comment Sodium Level 146 MEQ/L Potassium Level 4.8 MEQ/L Chloride Level 109 MEQ/L Carbon Dioxide Level 29.2 MEQ/L Anion Gap 8 MEQ/L Blood Urea Nitrogen 17 MG/DL Creatinine 1.00 MG/DL Estimat Glomerular Filtration 73 ML/MIN Rate Random Glucose 98 MG/DL Calcium Level 8.4 MG/DL [facility] Medical Decision Making Medical Screen Exam Complete: Yes Emergency Medical Condition: Yes Medical Record Reviewed: Yes Differential Diagnosis Electrolyte abnormality, gastroenteritis, colitis Narrative Course I have reviewed the patient's electronic medical record. Patient was seen here December 2016 IV placed CBC is normal Metabolic profile shows nothing significant, very minimal abnormality such as sodium of 146 Exam and vital signs are normal He looks minimally symptomatic Stable for outpatient primary care follow-up Diagnosis Primary Impression: Generalized weakness Additional Impression: Diarrhea Qualified Code: R19.7 - Diarrhea, unspecified type Additional Instructions: The patient was advised to follow up with their physician and return if they worsen. Med/Other Pt SpecificInfo: Other Disposition: 01 DISCHARGE HOME Condition: Stable Collin Byrd MD March 31, 2017 10:33
[2017-03-31 10:50] LABS: AUTOMATED NEUTROPHIL # 5.1 TH/MM3 (1.8-7.7); BASOPHIL % 0.4 % (0.0-2.0); EOSINOPHIL # 0.1 TH/MM3 (0-0.4); EOSINOPHIL % 0.9 % (0.0-4.0); HEMATOCRIT 40.5 % (39.0-51.0); HEMO FLAGS DIFF FINAL; LYMPH % 22.1 % (9.0-44.0); LYMPHOCYTE # 1.6 TH/MM3 (1.0-4.8); MEAN CELL VOLUME 94.8 FL (80.0-100.0); MEAN CORPUSCULAR HEMOGLOBIN 32.2 PG (27.0-34.0); MONO % 7.5 % (0.0-8.0); NEUT % 69.1 % (16.0-70.0); PLATELET COUNT 181 TH/MM3 (150-450); RED BLOOD COUNT 4.28 MIL/MM3 (4.50-5.90); RED CELL DISTRIBUTION WIDTH 12.6 % (11.6-17.2); WHITE BLOOD COUNT 7.4 TH/MM3 (4.0-11.0)
[2017-03-31 10:58] VITALS: BP 139/75; PULSE 84; O2SAT 97
[2017-03-31 10:58] LABS: POTASSIUM 4.8 MEQ/L (3.5-5.1)
[2017-03-31 11:01] LABS: BICARBONATE 29.2 MEQ/L (21.0-32.0)
== END 2017-03-31 11:46 | disposition home or self-care (01) ==
LOC: PHED 10:04
DX: R53.1 Weakness (principal); R19.7 Diarrhea, unspecified; I10 Essential (primary) hypertension; I25.2 Old myocardial infarction; E78.00 Pure hypercholesterolemia, unspecified; I25.10 Atherosclerotic heart disease of native coronary artery without angina pectoris; Z87.442 Personal history of urinary calculi; Z79.01 Long term (current) use of anticoagulants; Z95.5 Presence of coronary angioplasty implant and graft; Z79.82 Long term (current) use of aspirin
CPT/HCPCS: 80048; 85025; 99284

== ENCOUNTER 2017-07-15 01:19 | Inpatient (IN) | payer OTHER, MEDICARE ==
[~2017-07-15] VITALS: Ht 175.3 cm; Wt 73.1 kg
[2017-07-15] VITALS (16 sets, daily range): BP systolic 133–161; BP diastolic 66–89; PULSE 74–95; RESP 16–20; TEMP 98.4–100.4; O2SAT 92–97
[~2017-07-15 01:19] MED LIST changes: -MUCI600T PO; -PRED5PAK PO; -ZITH250T PO
[2017-07-15] MEDS ORDERED: ASPI1TAB73 PO (01:52)
[2017-07-15] MEDS ORDERED: SODIUM CHLORIDE 0.9% FLUSH 10 ML FLUSH IVF PRN ×2 (02:00→03:15)
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
[2017-07-15 02:05] LABS: GLUCOSE,URINE NEG (NEG); NITRITE,URINE NEG (NEG)
[2017-07-15 02:06] LABS: AUTOMATED NEUTROPHIL # 13.7 TH/MM3 (1.8-7.7); BASOPHIL # 0.1 TH/MM3 (0-0.2); BASOPHIL % 0.6 % (0.0-2.0); EOSINOPHIL % 0.3 % (0.0-4.0); LYMPH % 9.5 % (9.0-44.0); LYMPHOCYTE # 1.5 TH/MM3 (1.0-4.8); MEAN CELL VOLUME 96.6 FL (80.0-100.0); MEAN CORPUSCULAR HEMOGLOBIN 32.9 PG (27.0-34.0); MEAN CORPUSCULAR HGB CONC 34.1 % (32.0-36.0); MONO % 5.5 % (0.0-8.0); NEUT % 84.1 % (16.0-70.0); PLATELET COUNT 193 TH/MM3 (150-450); RED BLOOD COUNT 4.35 MIL/MM3 (4.50-5.90); RED CELL DISTRIBUTION WIDTH 13.8 % (11.6-17.2); WHITE BLOOD COUNT 16.2 TH/MM3 (4.0-11.0)
[2017-07-15 02:10] LABS: BLOOD, URINE MOD (NEG); KETONE, URINE 80 OR GREATER mg/dL (NEG)
[2017-07-15 02:11] LABS: BACTERIA, URINE FEW /hpf; COMMENT (UR) CULTURE INDICATED; CULTURE IF INDICATED CULTURE INDICATED; MUCUS URINE FEW /lpf (OCC); SQUAMOUS EPITHELIAL CELL URINE 0-5 /hpf (0-5); URINE COLOR YELLOW (YELLW/STRAW); WBC, URINE 100-200 /hpf (0-5)
--- NOTE | 2017-07-15 02:23 | RADRPT ---
EXAM DATE/TIME: 07/15/2017 01:57 [facility] COMPARISON: CT PULMONARY ANGIOGRAM, December 31, 2016, 13:05. CHEST PA & LAT, December 31, 2016, 11:36. CHEST S MANDY AP, June 19, 2016, 21:48. INDICATIONS : Chest pain. MEDICAL HISTORY : Hypertension. Cardiovascular disease. SURGICAL HISTORY : Coronary artery stent. Carotid endarterectomy. ENCOUNTER: Initial ACUITY: 1 day PAIN SCORE: 6/10 LOCATION: Bilateral chest FINDINGS: There is a new interstitial infiltrate in the lower left lung without consolidation. Stable linear s carring or atelectasis at the right lung base. Both hemidiaphragms well delineated. The heart is no rmal size. Multiple calcified right middle mediastinal nodes, stable. CONCLUSION: New non-consolidative infiltrate in the left lower lung. Thad Maria MD on July 15, 2017 at 2:19 Board Certified Radiologist. This report was verified electronically.
[2017-07-15 02:25] LABS: CHLORIDE 106 MEQ/L (98-107); POTASSIUM 3.6 MEQ/L (3.5-5.1); SODIUM (NA) 138 MEQ/L (136-145)
[2017-07-15 02:28] LABS: ANION GAP 8 MEQ/L (5-15); BLOOD UREA NITROGEN 17 MG/DL (7-18); MAGNESIUM 1.9 MG/DL (1.5-2.5)
[2017-07-15 02:31] LABS: HEMO FLAGS AUTO DIFF
[2017-07-15 02:32] LABS: GLOMERULAR FILTRATION RATE 66 ML/MIN (>89)
[2017-07-15] MEDS ORDERED: cefTRIAXone INJ 1,000 MG in SODIUM CHLORIDE 0.9% INJ 100 ML IV ONE (02:45)
[2017-07-15 02:47] LABS: SCAN/DIFF AUTO DIFF CONFIRMED
[2017-07-15] MEDS ORDERED: LEVOFLOXACIN 750 MG PREMIX INJ 150 ML IV ONE (03:00)
[2017-07-15] MEDS ORDERED: SODIUM CHLORIDE 0.9% FLUSH 10 ML FLUSH IV FLUSH PRN (03:15)
[2017-07-15] MEDS ORDERED: NALOXONE HCL 0.4 MG/ML AMP IV PRN (03:15)
[2017-07-15] MEDS ORDERED: ONDANSETRON HCL 4 MG/2 ML VIAL IV PUSH PRN (06:30)
[2017-07-15] MEDS ORDERED: LORazepam 0.5 MG TAB PO PRN (08:15)
[2017-07-15] MEDS ORDERED: SODIUM CHLORIDE 0.9% FLUSH 10 ML FLUSH IV FLUSH SCH (09:00)
[2017-07-15] MEDS ORDERED: PILL SPLITTER OTHER PRN (09:00)
[2017-07-15] MEDS ORDERED: SERTRALINE HCL 50 MG TAB PO SCH (09:00)
[2017-07-15] MEDS: METOPROLOL TARTRATE 100 MG TAB PO SCH ×2 (09:11→20:22)
[2017-07-15] MEDS: ASPIRIN EC 81 MG TABEC PO SCH (09:11)
[2017-07-15] MEDS: LOSARTAN 50 MG TAB PO SCH (09:11)
[2017-07-15] MEDS: SODIUM CHLORIDE 0.9% FLUSH 10 ML FLUSH IV FLUSH SCH ×2 (09:12→20:23)
--- NOTE | 2017-07-15 09:36 | HHI.HP ---
HPI Service [facility] Primary Care Physician John Crandall MD Admission Diagnosis UTI, generalized weakness, sirs/sepsis Diagnoses: (1) UTI (urinary tract infection) (2) Sepsis (3) Hypertension Chief Complaint: I took my blood pressure which was elevated along with increased heart rate Travel History International Travel<30 Days: No Contact w/Intl Traveler <30 Da: No Traveled to Known Affected Are: No Sepsis Criteria SIRS Criteria (2 or more): Heart rate over 90, WBC > 97957, < 4000 or > 10% bands Sepsis Criteria (SIRS+source): Infect source susp/known Criteria Outcome: Meets sepsis criteria History of Present Illness 72-year-old male with a history of CAD, hypertension, hyperlipidemia presented to the ED this morning and was subsequently admitted to [facility] [place] for evaluation of elevated BP, substernal chest pressure and dysuria. Patient states around 3 AM this morning he woke up secondary to a feeling of sharp substernal chest pain without any radiations and proceeded to take his BP which was elevated 190/90 and heart rate over 100. Patient reports being under a lot of stress lately and occasionally mistaken his BP meds. Had frequent increased urinary symptoms of dysuria and increase urinary frequency over the past several days. He described it to call urine however denies any febrile episode. Patient denies any GI bleed, hemoptysis or hematuria. During my exam , he reported improvement or chest pain. Review of Systems Except as stated in HPI: all other systems reviewed are Neg Past Family Social History Past Medical History CAD PR cardiac catheterization with stent TIA CVA dyslipidemia hypertension kidney stones sleep apnea COPD anxiety carotid endarterectomy cardiac stent left inguinal herniorrhaphy; occasional alcohol use no tobacco use since 2011; nursing notes reviewed Past Surgical History CARDIAC STENT PLACEMENT 4 YEARS AGO, CAROTID endarterectomy RIGHT CATARACTS Genitourinary Surgery: Yes (PROSTATE) LEFT INGUINAL HERNIA REPAIR Reported Medications Ventolin Hfa 18 GM Inh (Albuterol Sulfate) 90 Mcg/Act Aer 2 Puff INH Q4-6H PRN Reported Andreina Aspirin EC Low Dose (Aspirin) 81 Mg Tabdr 81 Mg PO DAILY Clonidine (Clonidine HCl) 0.2 Mg Tab 0.2 Mg PO BID PRN Omeprazole 40 Mg Cap 40 Mg PO DAILY Lorazepam 0.5 Mg Tab 0.5 Mg PO HS PRN Magnesium 200 Mg Tab 200 Mg PO HS Potassium Gluconate 595 Mg Tab 595 Tab PO HS Amlodipine (Amlodipine Besylate) 2.5 Mg Tab 2.5 Mg PO HS Atorvastatin (Atorvastatin Calcium) 80 Mg Tab 80 Mg PO HS Clopidogrel (Clopidogrel Bisulfate) 75 Mg Tab 75 Mg PO HS Metoprolol Tartrate 100 Mg Tab 100 Mg PO BID Vitamin D3 (Cholecalciferol) 1,000 Unit Chew 1,000 Units CHEW DAILY Vitamin B-12 (Cyanocobalamin) 500 Mcg Subl 750 Mcg SL DAILY Sertraline (Sertraline HCl) 25 Mg Tab 25 Mg PO DAILY Losartan (Losartan Potassium) 25 Mg Tab 50 Mg PO DAILY Allergies: Coded Allergies: hydrocodone (Verified Allergy, Severe, Anaphylaxis, 07/15/17) acetaminophen (Verified Allergy, Unknown, 07/15/17) oxycodone (Verified Allergy, Unknown, 07/15/17) Family History Mother from complication of Alzheimer disease Brother from complication of chronic kidney disease Social History Alcohol Use: Yes ("A BEER EVERY NOW AND THEN") Tobacco Use: No (QUIT: 2011) Substance Use: No Physical Exam Vital Signs Vital Signs Date Time Temp Pulse Resp B/P Pulse Ox O2 Delivery O2 Flow Rate FiO2 07/15/17 08:16 92 21 07/15/17 05:20 98.4 84 18 151/84 96 07/15/17 04:47 94 21 07/15/17 04:37 86 16 155/75 97 Room Air 07/15/17 03:45 80 16 149/70 94 Room Air 07/15/17 02:59 77 16 133/70 94 Room Air 07/15/17 02:01 87 16 133/66 94 Room Air 07/15/17 01:44 87 16 96 Room Air 07/15/17 01:38 98.8 92 16 161/73 07/15/17 01:27 98.8 92 16 161/73 94 Physical Exam GENERAL: This is a well-nourished, well-developed patient, in no apparent distress. SKIN: No rashes, ecchymoses or lesions. Cool and dry. HEAD: Atraumatic. Normocephalic. No temporal or scalp tenderness. EYES: Pupils equal round and reactive. Extraocular motions intact. No scleral icterus. No injection or drainage. ENT: Nose without bleeding, purulent drainage or septal hematoma. Throat without erythema, tonsillar hypertrophy or exudate. Uvula midline. Airway patent. NECK: Trachea midline. No JVD or lymphadenopathy. Supple, nontender, no meningeal signs. CARDIOVASCULAR: Regular rate and rhythm without murmurs, gallops, or rubs. RESPIRATORY: Clear to auscultation. Breath sounds equal bilaterally. No wheezes , rales, or rhonchi. GASTROINTESTINAL: Abdomen soft, non-tender, nondistended. No hepato-splenomegaly , or palpable masses. No guarding. MUSCULOSKELETAL: Extremities without clubbing, cyanosis, or edema. No joint tenderness, effusion, or edema noted. No calf tenderness. Negative Homans sign bilaterally. NEUROLOGICAL: Awake and alert. Cranial nerves II through XII intact. Motor and sensory grossly within normal limits. Five out of 5 muscle strength in all muscle groups. Normal speech. Laboratory Laboratory Tests Test 07/15/17 07/15/17 01:54 02:29 White Blood Count 16.2 Red Blood Count 4.35 Hemoglobin 14.3 Hematocrit 42.0 Mean Corpuscular Volume 96.6 Mean Corpuscular Hemoglobin 32.9 Mean Corpuscular Hemoglobin 34.1 Concent Red Cell Distribution Width 13.8 Platelet Count 193 Mean Platelet Volume 7.6 Neutrophils (%) (Auto) 84.1 Lymphocytes (%) (Auto) 9.5 Monocytes (%) (Auto) 5.5 Eosinophils (%) (Auto) 0.3 Basophils (%) (Auto) 0.6 Neutrophils # (Auto) 13.7 Lymphocytes # (Auto) 1.5 Monocytes # (Auto) 0.9 Eosinophils # (Auto) 0.0 Basophils # (Auto) 0.1 CBC Comment AUTO DIFF Differential Comment AUTO DIFF CONFIRMED Urine Color YELLOW Urine Turbidity CLEAR Urine pH 6.0 Urine Specific Brandon 1.022 Urine Protein 30 Urine Glucose (UA) NEG Urine Ketones 80 OR GREATER Urine Occult Blood MOD Urine Nitrite NEG Urine Bilirubin NEG Urine Leukocyte Esterase SMALL Urine RBC 10-14 Urine WBC 100-200 Urine WBC Clumps FEW Urine Squamous Epithelial 0-5 Cells Urine Bacteria FEW Urine Mucus FEW Microscopic Urinalysis Comment CULTURE INDICATED Sodium Level 138 Potassium Level 3.6 Chloride Level 106 Carbon Dioxide Level 24.0 Anion Gap 8 Blood Urea Nitrogen 17 Creatinine 1.10 Estimat Glomerular Filtration 66 Rate Random Glucose 90 Calcium Level 8.8 Magnesium Level 1.9 Troponin I LESS THAN 0.02 Lactic Acid Level 0.9 Date/Time Procedure Status Source Growth 07/15/17 02:44 Aerobic Blood Culture Received Blood Peripheral Pending 07/15/17 02:44 Anaerobic Blood Culture Received Blood Peripheral Pending 07/15/17 01:54 Urine Culture Received Urine Clean Catch Pending Result Diagram: 07/15/17 0154 07/15/17 0154 Assessment and Plan Problem List: (1) Sepsis ICD Code: A41.9 Status: Acute (2) UTI (urinary tract infection) ICD Code: N39.0 Status: Acute (3) Hypertension ICD Code: I10 Status: Acute Assessment and Plan 72 yrs old man with Sepsis: Heart rate over 90, WBC > 28689, < 4000 or > 10% bands; Infect source susp/known (UTI); s/p Rocephin and Currently on Levaquin IV pending Culture reports Urinary tract infection On Levaquin IV pending urine culture Hypertension Admitted with labile BP not currently improved Resume Lopressor 100 mg by mouth twice a day, Cozaar 50 mg by mouth daily , Norvasc 2.5 mg at bedtime, Clonidine when necessary History of CAD Resume Plavix and aspirin Hyperlipidemia Resume Lipitor 80 mg at bedtime DVT prophylaxis bilateral SCDs Code Status Full code Discussed Condition With Patient Problem Qualifiers (1) UTI (urinary tract infection): Qualified Code: N30.01 - Acute cystitis with hematuria (2) Sepsis: Qualified Code: A41.9 - Sepsis, due to unspecified organism Luis Carlos Iqbal MD Jul 15, 2017 09:36
[2017-07-15] MEDS ORDERED: RESP: ALBUTEROL 2.5 MG/IPRATROPIUM 0.5 MG NEB (PRN) NEB (10:15)
[2017-07-15] MEDS ORDERED: cloNIDine HCL 0.2 MG TAB PO PRN (10:15)
[2017-07-15 11:41] LABS: AUTOMATED NEUTROPHIL # 9.6 TH/MM3 (1.8-7.7); BASOPHIL % 0.4 % (0.0-2.0); EOSINOPHIL % 0.1 % (0.0-4.0); HEMATOCRIT 38.1 % (39.0-51.0); LYMPH % 7.5 % (9.0-44.0); LYMPHOCYTE # 0.8 TH/MM3 (1.0-4.8); MEAN CELL VOLUME 97.6 FL (80.0-100.0); MEAN CORPUSCULAR HEMOGLOBIN 33.3 PG (27.0-34.0); MEAN CORPUSCULAR HGB CONC 34.1 % (32.0-36.0); MONO % 6.7 % (0.0-8.0); NEUT % 85.3 % (16.0-70.0); PLATELET COUNT 185 TH/MM3 (150-450); RED CELL DISTRIBUTION WIDTH 13.9 % (11.6-17.2); WHITE BLOOD COUNT 11.1 TH/MM3 (4.0-11.0)
[2017-07-15 12:12] LABS: HEMO FLAGS DIFF FINAL
--- NOTE | 2017-07-15 15:06 | EKG ---
Date Performed: 07/15/2017 Time Performed: 02:02:22 PTAGE: 72 years EKG: Sinus rhythm MARKED LEFT AXIS DEVIATION ABNORMAL ECG PREVIOUS TRACING : 10/28/2016 03.40 Compared to prior tracing no significant change DOCTOR: Antony Sanchez Interpretating Date/Time 07/15/2017 15:06:04
[2017-07-15] MEDS ORDERED: IBUPROFEN 400 MG TAB PO PRN (19:45)
[2017-07-15] MEDS ORDERED: ATORVASTATIN 40 MG TAB PO SCH (21:00)
[2017-07-15] MEDS ORDERED: CLOPIDOGREL 75 MG TAB PO SCH (21:00)
[2017-07-15] MEDS ORDERED: MAGNESIUM 200 MG PO SCH (21:00)
[2017-07-15] MEDS ORDERED: amLODIPine BESYLATE 5 MG TAB PO SCH (21:00)
[2017-07-15] MEDS ORDERED: POTASSIUM GLUCONATE 595 MG PO SCH (21:00)
[2017-07-16] VITALS: BP 150/78; PULSE 80; RESP 18; TEMP 98.8; O2SAT 93
[2017-07-16 04:00] VITALS: BP 152/78; PULSE 76; RESP 18; TEMP 98.4; O2SAT 96
[2017-07-16 05:44] LABS: AUTOMATED NEUTROPHIL # 5.1 TH/MM3 (1.8-7.7); BASOPHIL % 0.6 % (0.0-2.0); EOSINOPHIL % 0.2 % (0.0-4.0); HEMATOCRIT 39.4 % (39.0-51.0); HEMO FLAGS DIFF FINAL; LYMPH % 9.7 % (9.0-44.0); LYMPHOCYTE # 0.6 TH/MM3 (1.0-4.8); MEAN CELL VOLUME 95.7 FL (80.0-100.0); MEAN CORPUSCULAR HEMOGLOBIN 33.1 PG (27.0-34.0); MEAN CORPUSCULAR HGB CONC 34.6 % (32.0-36.0); MONO % 9.3 % (0.0-8.0); NEUT % 80.2 % (16.0-70.0); PLATELET COUNT 179 TH/MM3 (150-450); RED BLOOD COUNT 4.12 MIL/MM3 (4.50-5.90); RED CELL DISTRIBUTION WIDTH 13.4 % (11.6-17.2); WHITE BLOOD COUNT 6.3 TH/MM3 (4.0-11.0)
[2017-07-16 05:50] LABS: CHLORIDE 109 MEQ/L (98-107); POTASSIUM 3.9 MEQ/L (3.5-5.1); SODIUM (NA) 144 MEQ/L (136-145)
[2017-07-16 05:58] LABS: ANION GAP 9 MEQ/L (5-15); BICARBONATE 26.1 MEQ/L (21.0-32.0); BLOOD UREA NITROGEN 14 MG/DL (7-18)
[2017-07-16] MEDS ORDERED: LEVOFLOXACIN 750 MG PREMIX INJ 150 ML IV SCH (06:00)
[2017-07-16 06:01] LABS: ALT (GPT) 19 U/L (12-78); AST (GOT) 20 U/L (15-37); GLOMERULAR FILTRATION RATE 85 ML/MIN (>89)
[2017-07-16 06:02] LABS: TOTAL BILIRUBIN ADULT 0.7 MG/DL (0.2-1.0)
[2017-07-16 06:03] LABS: ALKALINE PHOSPHATASE 77 U/L (45-117)
[2017-07-16 08:15] VITALS: BP 152/79; PULSE 74; RESP 18; TEMP 99.3; O2SAT 93
[2017-07-16] MEDS: ASPIRIN EC 81 MG TABEC PO SCH (08:18)
[2017-07-16] MEDS: LOSARTAN 50 MG TAB PO SCH (08:18)
[2017-07-16] MEDS: METOPROLOL TARTRATE 100 MG TAB PO SCH (08:18)
[2017-07-16] MEDS: SODIUM CHLORIDE 0.9% FLUSH 10 ML FLUSH IV FLUSH SCH (08:18)
--- NOTE | 2017-07-16 08:19 | HHI.PR ---
Subjective Remarks Follow-up sepsis/UTI 07/16/17-patient seen and examined, currently afebrile, reports significant improvement of urinary frequency and dysuria. Good urine output of clean color. Would like to go home today Objective Vitals Vital Signs Date Time Temp Pulse Resp B/P Pulse Ox O2 Delivery O2 Flow Rate FiO2 07/16/17 08:15 99.3 74 18 152/79 93 07/16/17 04:00 98.4 76 18 152/78 96 07/16/17 00:00 98.8 80 18 150/78 93 07/15/17 20:10 93 21 07/15/17 20:00 100.4 95 18 145/89 93 07/15/17 20:00 86 07/15/17 16:44 99.9 83 20 150/83 97 07/15/17 14:00 84 19 156/78 07/15/17 12:00 98.8 74 20 142/81 93 07/15/17 09:54 80 I/O 07/15/17 07/15/17 07/15/17 07/16/17 07/16/17 07/16/17 07:00 15:00 23:00 07:00 15:00 23:00 Intake Total 370 ml 500 ml 1300 ml 420 ml Output Total 250 ml 300 ml 200 ml 950 ml Balance 120 ml 200 ml 1100 ml -530 ml Intake Oral 120 ml 500 ml 1300 ml 420 ml IV Total 250 ml Output Urine Total 250 ml 300 ml 200 ml 950 ml # Voids 3 3 # Bowel Movements 0 0 Result Diagram: 07/16/17 0515 07/16/17 0515 Imaging Last Impressions Chest X-Ray 07/15/17 0151 Signed Impressions: Service Date/Time: Saturday, July 15, 2017 01:57 - CONCLUSION: New non-consolidative infiltrate in the left lower lung. Thad Maria MD Objective Remarks GENERAL: NAD SKIN: Warm and dry. HEAD: Normocephalic. EYES: No scleral icterus. No injection or drainage. NECK: Supple, trachea midline. No JVD or lymphadenopathy. CARDIOVASCULAR: Regular rate and rhythm without murmurs, gallops, or rubs. RESPIRATORY: Breath sounds equal bilaterally. No accessory muscle use. GASTROINTESTINAL: Abdomen soft, non-tender, nondistended. MUSCULOSKELETAL: No cyanosis, or edema. BACK: Nontender without obvious deformity. No CVA tenderness. A/P Problem List: (1) Sepsis ICD Code: A41.9 Status: Resolved (2) UTI (urinary tract infection) ICD Code: N39.0 Status: Acute (3) Hypertension ICD Code: I10 Status: Acute Assessment and Plan 72 yrs old man with Sepsis: Resolved and Currently on Levaquin IV pending Culture report Urinary tract infection On Levaquin IV pending urine culture Hypertension Continue Lopressor 100 mg by mouth twice a day, Cozaar 50 mg by mouth daily , Norvasc 2.5 mg at bedtime, Clonidine when necessary History of CAD Continue Plavix and aspirin Hyperlipidemia Continue Lipitor 80 mg at bedtime DVT prophylaxis bilateral SCDs Problem Qualifiers (1) Sepsis: Qualified Code: A41.9 - Sepsis, due to unspecified organism (2) UTI (urinary tract infection): Qualified Code: N30.01 - Acute cystitis with hematuria Luis Carlos Iqbal MD Jul 16, 2017 08:19
[2017-07-16] MEDS ORDERED: LEVA500T20 PO (08:26)
--- NOTE | 2017-07-16 08:29 | HHI.DS ---
Discharge Summary Admission Date Jul 15, 2017 at 10:00 Discharge Date: Jul 16, 2017 Admitting Diagnosis UTI, generalized weakness, sirs/sepsis (1) Sepsis ICD Code: A41.9 (2) UTI (urinary tract infection) ICD Code: N39.0 (3) Hypertension ICD Code: I10 Procedures none Brief History - From Admission 72-year-old male with a history of CAD, hypertension, hyperlipidemia presented to the ED this morning and was subsequently admitted to [facility] for evaluation of elevated BP, substernal chest pressure and dysuria. Patient states around 3 AM this morning he woke up secondary to a feeling of sharp substernal chest pain without any radiations and proceeded to take his BP which was elevated 190/90 and heart rate over 100. Patient reports being under a lot of stress lately and occasionally mistaken his BP meds. Had frequent increased urinary symptoms of dysuria and increase urinary frequency over the past several days. He described it to call urine however denies any febrile episode. Patient denies any GI bleed, hemoptysis or hematuria. During my exam , he reported improvement or chest pain. CBC/BMP: 07/16/17 0515 07/16/17 0515 Significant Findings Laboratory Tests Test 07/15/17 07/15/17 07/16/17 01:54 11:25 05:15 White Blood Count 16.2 TH/MM3 11.1 TH/MM3 (4.0-11.0) (4.0-11.0) Red Blood Count 4.35 MIL/MM3 3.90 MIL/MM3 4.12 MIL/MM3 (4.50-5.90) (4.50-5.90) (4.50-5.90) Neutrophils (%) (Auto) 84.1 % 85.3 % 80.2 % (16.0-70.0) (16.0-70.0) (16.0-70.0) Neutrophils # (Auto) 13.7 TH/MM3 9.6 TH/MM3 (1.8-7.7) (1.8-7.7) Urine Protein 30 mg/dL (NEG-TRACE) Urine Ketones 80 OR GREATER mg/dL (NEG) Urine Occult Blood MOD (NEG) Urine Leukocyte Esterase SMALL (NEG) Urine RBC 10-14 /hpf (0-3) Urine WBC 100-200 /hpf (0-5) Urine WBC Clumps FEW (NONE) Urine Bacteria FEW /hpf (NONE) Urine Mucus FEW /lpf (OCC) Estimat Glomerular Filtration 66 ML/MIN (>89) 85 ML/MIN (>89) Rate Troponin I LESS THAN 0.02 NG/ML (0.02-0.05) Hematocrit 38.1 % (39.0-51.0) Mean Platelet Volume 6.7 FL (7.0-11.0) Lymphocytes (%) (Auto) 7.5 % (9.0-44.0) Lymphocytes # (Auto) 0.8 TH/MM3 0.6 TH/MM3 (1.0-4.8) (1.0-4.8) Monocytes (%) (Auto) 9.3 % (0.0-8.0) Chloride Level 109 MEQ/L (98-107) Calcium Level 8.2 MG/DL (8.5-10.1) Total Protein 6.3 GM/DL (6.4-8.2) Albumin 2.8 GM/DL (3.4-5.0) Imaging Last Impressions Chest X-Ray 07/15/17 0151 Signed Impressions: Service Date/Time: Saturday, July 15, 2017 01:57 - CONCLUSION: New non-consolidative infiltrate in the left lower lung. Thad Maria MD PE at Discharge GENERAL: NAD SKIN: Warm and dry. HEAD: Normocephalic. EYES: No scleral icterus. No injection or drainage. NECK: Supple, trachea midline. No JVD or lymphadenopathy. CARDIOVASCULAR: Regular rate and rhythm without murmurs, gallops, or rubs. RESPIRATORY: Breath sounds equal bilaterally. No accessory muscle use. GASTROINTESTINAL: Abdomen soft, non-tender, nondistended. MUSCULOSKELETAL: No cyanosis, or edema. BACK: Nontender without obvious deformity. No CVA tenderness. Hospital Course Patient admitted secondary to sepsis due to UTI for which she was started on IV antibiotic with monitoring of culture. He was continued on his medication for other chronic medical conditions. DVT and GI prophylaxis were provided. Prior to discharge, patient's condition improved with her vitals remained stable. He' ll be discharged on a seven-day course of Levaquin 500 mg daily. Pt Condition on Discharge: Stable Discharge Disposition: Discharge Home Discharge Time: <= 30 minutes Discharge Instructions DIET: Follow Instructions for: Heart Healthy Diet Activities you can perform: Regular-No Restrictions Follow up Referrals: PCP Follow-up - 1 Week New Medications: Levofloxacin (Levaquin) 500 Mg Tablet 500 MG PO DAILY Infection #7 MG Continued Medications: Albuterol 18 GM Inh (Ventolin Hfa 18 GM Inh) 90 Mcg/Act Aer 2 PUFF INH Q4-6H PRN SHORTNESS OF BREATH #1 Ref 0 INHALER Amlodipine (Amlodipine) 2.5 Mg Tab 2.5 MG PO HS Blood Pressure Management #30 Ref [address] (Andreina Aspirin EC Low Dose) 81 Mg Tabdr 81 MG PO DAILY Atorvastatin (Atorvastatin) 80 Mg Tab 80 MG PO HS Cholesterol Management #30 Ref 0 TAB Cholecalciferol (Vitamin D3) 1,000 Unit Chew 1000 UNITS CHEW DAILY Nutritional Supplement #1 Ref 0 BOTTLE Clonidine (Clonidine) 0.2 Mg Tab 0.2 MG PO BID PRN TARGET BLOOD PRESSURE NOT MET #60 Ref 0 TAB Clopidogrel (Clopidogrel) 75 Mg Tab 75 MG PO HS Blood Clot Prevention #30 Ref 0 TAB Cyanocobalamin (Vitamin B-12) 500 Mcg Subl 750 MCG SL DAILY Nutritional Supplement Ref 0 TAB.SL Lorazepam (Lorazepam) 0.5 Mg Tab 0.5 MG PO HS PRN ANXIETY AND/OR INSOMNIA Ref 0 TAB Losartan (Losartan) 25 Mg Tab 50 MG PO DAILY Blood Pressure Management #30 Ref 0 TAB Magnesium (Magnesium) 200 Mg Tab 200 MG PO HS TAB Metoprolol Tartrate (Metoprolol Tartrate) 100 Mg Tab 100 MG PO BID #60 Ref 0 TAB Omeprazole (Omeprazole) 40 Mg Cap 40 MG PO DAILY #30 Ref 0 CAP Potassium Gluconate (Potassium Gluconate) 595 Mg Tab 595 TAB PO HS Sertraline (Sertraline) 25 Mg Tab 25 MG PO DAILY #30 Ref 0 TAB Luis Carlos Iqbal MD Jul 16, 2017 08:28
[2017-07-16] MEDS ORDERED: PANTOPRAZOLE SOD 40 MG DELAYED RELEASE TAB PO SCH (09:00)
[2017-07-16 09:02] VITALS: O2SAT 92
== END 2017-07-16 09:10 | disposition home or self-care (01) | DRG 872 ==
LOC: PHED 01:19 → PHEDA 03:05 → PH3A 05:05 → OBSVTOIN 10:00
PROVIDERS: ADMIT Hospitalist; ATTEND Hospitalist
DX: A41.9 Sepsis, unspecified organism (principal); J44.9 Chronic obstructive pulmonary disease, unspecified; N30.01 Acute cystitis with hematuria; G47.30 Sleep apnea, unspecified; I25.10 Atherosclerotic heart disease of native coronary artery without angina pectoris; I10 Essential (primary) hypertension; F32.9 Major depressive disorder, single episode, unspecified; E78.5 Hyperlipidemia, unspecified; K21.9 Gastro-esophageal reflux disease without esophagitis; M19.90 Unspecified osteoarthritis, unspecified site; F41.9 Anxiety disorder, unspecified; Z79.82 Long term (current) use of aspirin; Z86.73 Personal history of transient ischemic attack (TIA), and cerebral infarction without residual deficits; I25.2 Old myocardial infarction; Z95.5 Presence of coronary angioplasty implant and graft; Z87.891 Personal history of nicotine dependence; Z79.02 Long term (current) use of antithrombotics/antiplatelets
CPT/HCPCS: 71010; 80048; 80053; 81001; 83605; 83735; 84484; 85025; 87040; 87077; 87086; 87186; 93005; 96374; G8987-GP; G8988-GP; J0696; J1956; J2405

== ENCOUNTER 2018-01-31 09:25 | Emergency (ER) | payer MEDICARE, OTHER ==
[~2018-01-31] VITALS: Ht 167.6 cm; Wt 75.3 kg
[~2018-01-31 09:25] MED LIST changes: -ASPI1TAB69 PO; +ASPI1TAB73 PO; -ATOR1TAB18 PO; +ATOR80TA45 PO; -COEN200T PO; +LEVA500T33 PO; -LORA-373 PO; +LORA0.5T PO
[2018-01-31 09:38] VITALS: BP 154/70; PULSE 64; RESP 16; TEMP 97.2; O2SAT 96
--- NOTE | 2018-01-31 10:44 | PD ---
HPI Chief Complaint: Dizziness Time Seen by Provider: 10:41 Travel History International Travel<30 days: No Contact w/Intl Traveler<30days: No Traveled to known affect area: No History of Present Illness HPI Patient comes in complaining of a one-day history of dizziness lightheadedness, stating that he felt like his body was moving. He denied any sensation such as the room spinning. Patient did state that he did not have any evidence of any headache, chest pain, abdominal pain, back pain. Patient also denied any alleviating or aggravating factors. Patient also denied any other associated factors such as fever, shortness of breath, rash, neck stiffness, nausea, vomiting or diarrhea. Patient does state that he has not been drinking his usual amount, he does state that he has been eating his normal amount. But that he has been neglecting the hydration part of his day and wonders if that may be causing this sensation. Apparently listed hydrocodone oxycodone and Tylenol as allergies states that these made him feel dizzy and feel like he was going to . Past medical history significant for TIAs hypertension UT status post cardiac stent placement and carotid endarterectomy as well as hypercholesterolemia, hypertension, sleep apnea, COPD, GERD kidney stones PFSH Past Medical History Hx Anticoagulant Therapy: Yes (plavix, asa 81mg) Arthritis: Yes Autoimmune Disease: No Anxiety: Yes Depression: Yes Cancer: No Cardiac Catheterization: Yes Cardiovascular Problems: Yes (htn on med, [place] with stent, CAD) High Cholesterol: Yes Chest Pain: Yes Congestive Heart Failure: No Cerebrovascular Accident: Yes (tia's) Coronary Artery Disease: Yes Diabetes: No Diminished Hearing: No Endocrine: No GERD: Yes Genitourinary: Yes Hypertension: Yes Immune Disorder: No Implanted Vascular Access Dvce: No Kidney Stones: Yes Musculoskeletal: Yes Neurologic: Yes Psychiatric: Yes Reproductive: No Respiratory: Yes (copd) Myocardial Infarction: Yes (2011) Sleep Apnea: Yes Thyroid Disease: No Past Surgical History Abdominal Surgery: Yes Cardiac Surgery: Yes (CARDIAC STENT PLACEMENT 4 YEARS AGO, CAROTID ENDARECTOMY ) Coronary Stent: Yes (2011 one stent) Endocrine Surgery: No Eye Surgery: Yes (RIGHT CATARACTS) Genitourinary Surgery: Yes (PROSTATE) Gynecologic Surgery: No Hysterectomy: Yes Thoracic Surgery: No Other Surgery: Yes ( LEFT INGUINAL HERNIA REPAIR) Social History Alcohol Use: Yes ("A BEER EVERY NOW AND THEN") Tobacco Use: No (QUIT: 2011) Substance Use: No Allergies-Medications (Allergen,Severity, Reaction): Coded Allergies: hydrocodone (Verified Allergy, Severe, Anaphylaxis, 01/31/18) acetaminophen (Verified Allergy, Unknown, 01/31/18) oxycodone (Verified Allergy, Unknown, 01/31/18) Reported Meds & Prescriptions Reported Meds & Active Scripts Active Ventolin Hfa 18 GM Inh (Albuterol Sulfate) 90 Mcg/Act Aer 2 Puff INH Q4-6H PRN Reported Andreina Aspirin EC Low Dose (Aspirin) 81 Mg Tabdr 81 Mg PO DAILY Clonidine (Clonidine HCl) 0.2 Mg Tab 0.2 Mg PO BID PRN Omeprazole 40 Mg Cap 40 Mg PO DAILY Lorazepam 0.5 Mg Tab 0.5 Mg PO HS PRN Magnesium 200 Mg Tab 200 Mg PO HS Potassium Gluconate 595 Mg Tab 595 Tab PO HS Amlodipine (Amlodipine Besylate) 2.5 Mg Tab 2.5 Mg PO HS Atorvastatin (Atorvastatin Calcium) 80 Mg Tab 80 Mg PO HS Clopidogrel (Clopidogrel Bisulfate) 75 Mg Tab 75 Mg PO HS Metoprolol Tartrate 100 Mg Tab 100 Mg PO BID Vitamin D3 (Cholecalciferol) 1,000 Unit Chew 1,000 Units CHEW DAILY Vitamin B-12 (Cyanocobalamin) 500 Mcg Subl 750 Mcg SL DAILY Sertraline (Sertraline HCl) 25 Mg Tab 25 Mg PO DAILY Losartan (Losartan Potassium) 25 Mg Tab 50 Mg PO DAILY Review of Systems General / Constitutional: No: Fever Eyes: No: Visual changes HENT: No: Headaches Cardiovascular: No: Chest Pain or Discomfort Respiratory: No: Shortness of Breath Gastrointestinal: No: Abdominal Pain Genitourinary: No: Dysuria Musculoskeletal: No: Pain Skin: No Rash Neurologic: Positive: Dizziness Psychiatric: No: Depression Endocrine: No: Polydipsia Hematologic/Lymphatic: No: Easy Bruising Physical Exam Narrative GENERAL: SKIN: Warm and dry. HEAD: Atraumatic. Normocephalic. EYES: Pupils equal and round. No scleral icterus. No injection or drainage. ENT: No nasal bleeding or discharge. Mucous membranes pink and moist. NECK: Trachea midline. No JVD. CARDIOVASCULAR: Regular rate and rhythm. RESPIRATORY: No accessory muscle use. Clear to auscultation. Breath sounds equal bilaterally. GASTROINTESTINAL: Abdomen soft, non-tender, nondistended. MUSCULOSKELETAL: Extremities without clubbing, cyanosis, or edema. No obvious deformities. NEUROLOGICAL: Awake and alert. No obvious cranial nerve deficits. Motor grossly within normal limits. Five out of 5 muscle strength in the arms and legs. Normal speech. PSYCHIATRIC: Appropriate mood and affect; insight and judgment normal. Data Data Last Documented VS Vital Signs Date Time Temp Pulse Resp B/P (MAP) Pulse Ox O2 Delivery O2 Flow Rate FiO2 01/31/18 12:10 62 20 148/66 (93) 95 Room Air 01/31/18 09:38 97.2 Orders Orders Electrocardiogram (01/31/18 11:09) Complete Blood Count With Diff (01/31/18 11:09) Comprehensive Metabolic Panel (01/31/18 11:09) Troponin I (01/31/18 11:09) B-Type Natriuretic Peptide (01/31/18 11:09) Prothrombin Time / Inr (Pt) (01/31/18 11:09) Act Partial Throm Time (Ptt) (01/31/18 11:09) Lipase (01/31/18 11:09) Urinalysis - C+S If Indicated (01/31/18 11:09) Thyroid Stimulating Hormone (01/31/18 11:09) Chest, Single Ap (01/31/18 11:09) Ct Brain W/O Iv Contrast(Rout) (01/31/18 11:09) Labs Laboratory Tests Test 01/31/18 11:00 White Blood Count 6.4 TH/MM3 Red Blood Count 4.20 MIL/MM3 Hemoglobin 14.1 GM/DL Hematocrit 40.0 % Mean Corpuscular Volume 95.1 FL Mean Corpuscular Hemoglobin 33.5 PG Mean Corpuscular Hemoglobin Concent 35.2 % Red Cell Distribution Width 12.8 % Platelet Count 189 TH/MM3 Mean Platelet Volume 7.2 FL Neutrophils (%) (Auto) 67.6 % Lymphocytes (%) (Auto) 21.3 % Monocytes (%) (Auto) 9.2 % Eosinophils (%) (Auto) 1.2 % Basophils (%) (Auto) 0.7 % Neutrophils # (Auto) 4.3 TH/MM3 Lymphocytes # (Auto) 1.4 TH/MM3 Monocytes # (Auto) 0.6 TH/MM3 Eosinophils # (Auto) 0.1 TH/MM3 Basophils # (Auto) 0.0 TH/MM3 CBC Comment DIFF FINAL Differential Comment Prothrombin Time 11.0 SEC Prothromb Time International Ratio 1.1 RATIO Activated Partial Thromboplast Time 24.9 SEC Blood Urea Nitrogen 20 MG/DL Creatinine 1.00 MG/DL Random Glucose 77 MG/DL Total Protein 6.6 GM/DL Albumin 3.4 GM/DL Calcium Level 7.8 MG/DL Alkaline Phosphatase 87 U/L Aspartate Amino Transf (AST/SGOT) 15 U/L Alanine Aminotransferase (ALT/SGPT) 17 U/L Total Bilirubin 0.5 MG/DL Sodium Level 141 MEQ/L Potassium Level 3.9 MEQ/L Chloride Level 108 MEQ/L Carbon Dioxide Level 26.4 MEQ/L Anion Gap 7 MEQ/L Estimat Glomerular Filtration Rate 73 ML/MIN Troponin I LESS THAN 0.02 NG/ML B-Type Natriuretic Peptide 67 PG/ML Lipase 165 U/L Thyroid Stimulating Hormone 3rd Gen 1.840 uIU/ML MDM Medical Decision Making Medical Screen Exam Complete: Yes Emergency Medical Condition: Yes Medical Record Reviewed: Yes Interpretation(s) EKG shows normal sinus rhythm, 74 bpm, incomplete right bundle branch block, no STEMI pattern noted. Differential Diagnosis Vertigo versus dehydration versus anemia versus electrolyte abnormality versus arrhythmia versus non-STEMI versus STEMI Narrative Course CBC shows no leukocytosis, no anemia, no left shift, and normal platelet count. Coagulation profile is within normal limits Complete metabolic profile shows a normal TSH, normal kidney function, normal liver function, normal lipase function. Negative troponin. And a normal beta natruretic peptide as well as normal electrolytes. Chest x-ray read as some minimal parenchymal changes in the right base by radiology. This may be consistent with an infiltrate and with walking pneumonia type of infection. CT scan of head is read as negative for acute process per radiology report Diagnosis Primary Impression: Walking pneumonia Additional Impression: Dehydration Patient Instructions: Community Acquired Pneumonia (DC), Dehydration (ED), General Instructions Scripts Azithromycin (Zithromax Z-Trevor) 250 Mg Dspk 250 MG PO DIRECTED for Infection, #1 DSPK 0 Refills 500 MG (2 tabs) day 1, then 1 tab days 2-5. Prov: Jordin Rodrigues MD 01/31/18 Disposition: 01 DISCHARGE HOME Condition: Stable Jordin Rodrigues MD Jan 31, 2018 10:43
[2018-01-31 11:24] LABS: AUTOMATED NEUTROPHIL # 4.3 TH/MM3 (1.8-7.7); BASOPHIL % 0.7 % (0.0-2.0); EOSINOPHIL # 0.1 TH/MM3 (0-0.4); EOSINOPHIL % 1.2 % (0.0-4.0); HEMOGLOBIN 14.1 GM/DL (13.0-17.0); LYMPH % 21.3 % (9.0-44.0); LYMPHOCYTE # 1.4 TH/MM3 (1.0-4.8); MEAN CELL VOLUME 95.1 FL (80.0-100.0); MEAN CORPUSCULAR HEMOGLOBIN 33.5 PG (27.0-34.0); MEAN CORPUSCULAR HGB CONC 35.2 % (32.0-36.0); MEAN PLATELET VOLUME 7.2 FL (7.0-11.0); MONO % 9.2 % (0.0-8.0); MONOCYTE # 0.6 TH/MM3 (0-0.9); NEUT % 67.6 % (16.0-70.0); PLATELET COUNT 189 TH/MM3 (150-450); RED CELL DISTRIBUTION WIDTH 12.8 % (11.6-17.2); WHITE BLOOD COUNT 6.4 TH/MM3 (4.0-11.0)
--- NOTE | 2018-01-31 11:34 | RADRPT ---
EXAM DATE/TIME: 01/31/2018 11:19 [facility] COMPARISON: CHEST SINGLE AP, July 15, 2017, 1:57. INDICATIONS : syncope, leg weakness MEDICAL HISTORY : Myocardial infarction. SURGICAL HISTORY : Coronary artery stent. ENCOUNTER: Initial ACUITY: 1 day PAIN SCORE: 0/10 LOCATION: Bilateral chest FINDINGS: Minimal bibasilar parenchymal changes are evident worse on the right than the left. The left is stab le the interval. Mild compensated cardiomegaly. The portion of the bony skeleton visualized is unrem arkable. CONCLUSION: New minimal parenchymal changes right base nonspecific otherwise negative Vishnu Gage MD FACR on January 31, 2018 at 11:33 Board Certified Radiologist. This report was verified electronically.
[2018-01-31 11:37] LABS: CHLORIDE 108 MEQ/L (98-107); SODIUM (NA) 141 MEQ/L (136-145)
--- NOTE | 2018-01-31 11:37 | RADRPT ---
EXAM DATE/TIME: 01/31/2018 11:30 [facility] COMPARISON: CT BRAIN W/O CONTRAST, October 28, 2016, 4:14. INDICATIONS : Dizziness and weakness. RADIATION DOSE: 65.23 CTDIvol (mGy) MEDICAL HISTORY : Cardiovascular disease. Cerebrovascular disease. Hypertension.Anticoagulant therapy. SURGICAL HISTORY : Coronary artery stent. ENCOUNTER: Initial ACUITY: 2 days PAIN SCALE: 0/10 LOCATION: cranial TECHNIQUE: Multiple contiguous axial images were obtained of the head. Using automated exposure control and adj ustment of the mA and/or kV according to patient size, radiation dose was kept as low as reasonably a chievable to obtain optimal diagnostic quality images. DICOM format image data is available electro nically for review and comparison. FINDINGS: CEREBRUM: The ventricles are normal for age. No evidence of midline shift, mass lesion, hemorrhage or acute in farction. No extra-axial fluid collections are seen. Minimal incidental basalganglia calcifications . POSTERIOR FOSSA: The cerebellum and brainstem are intact. The 4th ventricle is midline. The cerebellopontine angle i s unremarkable. EXTRACRANIAL: The visualized portion of the orbits is intact. SKULL: The calvaria is intact. No evidence of skull fracture. CONCLUSION: Negative for acute process. Vishnu Gage MD FACR on January 31, 2018 at 11:36 Board Certified Radiologist. This report was verified electronically.
[2018-01-31 11:40] LABS: ALBUMIN 3.4 GM/DL (3.4-5.0); CALCIUM 7.8 MG/DL (8.5-10.1)
[2018-01-31 11:41] LABS: BICARBONATE 26.4 MEQ/L (21.0-32.0); BLOOD UREA NITROGEN 20 MG/DL (7-18); GLUCOSE,RANDOM 77 MG/DL (74-106)
[2018-01-31 11:42] LABS: INTERNATIONAL NORMALIZED RATIO 1.1 RATIO
[2018-01-31 11:44] LABS: ALT (GPT) 17 U/L (12-78); AST (GOT) 15 U/L (15-37); GLOMERULAR FILTRATION RATE 73 ML/MIN (>89)
[2018-01-31 11:45] LABS: TOTAL BILIRUBIN ADULT 0.5 MG/DL (0.2-1.0); TOTAL PROTEIN 6.6 GM/DL (6.4-8.2)
[2018-01-31 11:46] LABS: ALKALINE PHOSPHATASE 87 U/L (45-117)
[2018-01-31 11:49] LABS: TROPONIN I LESS THAN 0.02 NG/ML (0.02-0.05)
[2018-01-31 12:10] VITALS: BP 148/66; PULSE 62; RESP 20; O2SAT 95
[2018-01-31] MEDS ORDERED: ZITHTAB PO (12:34)
[2018-01-31 12:59] VITALS: BP 134/64
--- NOTE | 2018-01-31 13:17 | EKG ---
Date Performed: 01/31/2018 Time Performed: 11:16:09 PTAGE: 72 years EKG: Sinus rhythm BORDERLINE LEFT AXIS DEVIATION BORDERLINE ECG PREVIOUS TRACING : 07/15/2017 02.02 DOCTOR: Eamon Burnham Interpretating Date/Time 01/31/2018 13:15:43
== END 2018-01-31 13:10 | disposition home or self-care (01) ==
LOC: PHED 09:25
DX: J18.8 Other pneumonia, unspecified organism (principal); E86.0 Dehydration; R94.31 Abnormal electrocardiogram [ECG] [EKG]; M19.90 Unspecified osteoarthritis, unspecified site; F32.9 Major depressive disorder, single episode, unspecified; I10 Essential (primary) hypertension; I25.10 Atherosclerotic heart disease of native coronary artery without angina pectoris; I25.2 Old myocardial infarction; E78.00 Pure hypercholesterolemia, unspecified; J44.9 Chronic obstructive pulmonary disease, unspecified; Z87.891 Personal history of nicotine dependence; Z79.82 Long term (current) use of aspirin; Z95.5 Presence of coronary angioplasty implant and graft; Z86.73 Personal history of transient ischemic attack (TIA), and cerebral infarction without residual deficits; Z79.899 Other long term (current) drug therapy
CPT/HCPCS: 70450; 71045; 80053; 83690; 83880; 84443; 84484; 85025; 85610; 85730; 93005; 99285

== ENCOUNTER 2018-04-04 07:18 | Emergency (ER) | payer OTHER ==
[2018-04-04] MEDS: BACLOFEN 10 MG TAB PO (08:04)
[2018-04-04] MEDS: KETOROLAC TROMETHAMINE 60 MG/2 ML (IM) VIAL IM (08:05)
== END 2018-04-04 08:26 | disposition home or self-care (01) ==
LOC: PHED 07:18
DX: S16.1XXA Strain of muscle, fascia and tendon at neck level, initial encounter (principal); M19.90 Unspecified osteoarthritis, unspecified site; E78.00 Pure hypercholesterolemia, unspecified; J44.9 Chronic obstructive pulmonary disease, unspecified; I25.10 Atherosclerotic heart disease of native coronary artery without angina pectoris; K21.9 Gastro-esophageal reflux disease without esophagitis; I10 Essential (primary) hypertension; Z86.73 Personal history of transient ischemic attack (TIA), and cerebral infarction without residual deficits; Y93.54 Activity, bowling
CPT/HCPCS: 96372; 99283-25

== ENCOUNTER 2018-09-27 03:31 | Inpatient (IN) ==
[2018-09-27 04:09] LABS: Baso # (Auto) 0.1 th/mm3 (0.0-0.2); Baso % (Auto) 0.8 % (0.0-2.0); Eos # (Auto) 0.1 th/mm3 (0.0-0.4); Eos % (Auto) 1.1 % (0.0-4.0); Hemoglobin 14.4 gm/dL (13.0-17.0); Lymph # (Auto) 2.2 th/mm3 (1.0-4.8); Lymph % (Auto) 28.1 % (9.0-44.0); Mean Corpuscular HGB Conc 34.2 % (32.0-36.0); Mean Corpuscular Hemoglobin 33.5 pg (27.0-34.0); Mean Corpuscular Volume 97.8 fL (80.0-100.0); Mono # (Auto) 0.7 th/mm3 (0.0-0.9); Mono % (Auto) 9.3 % (0.0-8.0); Neut # (Auto) 4.8 th/mm3 (1.8-7.7); Neut % (Auto) 60.7 % (16.0-70.0); Platelet Count 212 th/mm3 (150-450); Red Blood Count 4.29 mil/mm3 (4.50-5.90); Red Cell Distribution Width 12.4 % (11.6-17.2); White Blood Count 7.9 th/mm3 (4.0-11.0)
[2018-09-27 04:15] LABS: Chloride 108 meq/L (98-107); Potassium 3.8 meq/L (3.5-5.1); Sodium 140 meq/L (136-145)
[2018-09-27 04:18] LABS: INR 1.1 Ratio
[2018-09-27 04:19] LABS: Albumin 3.6 g/dL (3.4-5.0); Anion Gap 5 meq/L (5-15); Blood Urea Nitrogen 18 mg/dL (7-18); Calcium 7.9 mg/dL (8.5-10.1); Carbon Dioxide 27.2 meq/L (21.0-32.0); Glucose,Random 104 mg/dL (74-106)
--- NOTE | 2018-09-27 04:19 | XR ---
EXAM DATE: 09/27/2018 4:13 AM EDT AGE/SEX: 73 years / Male INDICATIONS: Chest pain. CLINICAL DATA: This is the patient's initial encounter. Patient reports that signs and symptoms have been present for 1 day and indicates a pain score of 4/10. MEDICAL/SURGICAL HISTORY: Myocardial infarction. Coronary artery stent. COMPARISON: [facility], CHEST SINGLE AP, 01/31/2018. . FINDINGS: No infiltrate, effusion or pneumothorax. Trace scarring at the bases again seen. Heart size stable, w ithin normal limits. Thoracic aorta is mildly tortuous. CONCLUSION: No acute cardiopulmonary disease demonstrated. Electronically signed by: Jaycob Franco MD 09/27/2018 4:18 AM EDT
[2018-09-27 04:22] LABS: Alanine Aminotransferase 23 U/L (12-78); Aspartate Aminotransferase 24 U/L (15-37); Glomerular Filtration Rate 65 mL/min (>89)
[2018-09-27 04:24] LABS: Total Protein 6.6 g/dL (6.4-8.2)
[2018-09-27 04:25] LABS: Alkaline Phosphatase 88 U/L (45-117)
--- NOTE | 2018-09-27 04:51 | ED ---
HPI General Chief complaint: Hypertension Stated complaint: high BP since tonight Time Seen by Provider: 09/27/18 03:44 Source: patient Mode of arrival: ambulatory Limitations: no limitations History of Present Illness HPI narrative: 73-year-old male came to the emergency room with history of on and off chest pain since last night. Patient says that the pain was substernal with no radiation. He checked his blood pressure during these episodes and it was high. At 3 in the morning he took clonidine which she has been given by his physician to lower his blood pressure as needed when it gets high. After taking it patient came to the emergency room since his blood pressure at 3 was more than 200. Currently his pain has subsided. Patient has not had this kind of chest pain in the past. He has history of coronary artery disease 7-8 years ago when he had 2 stents put in. 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 Patient is on Plavix which she has been taking like he supposed to. His blood pressure upon arrival was 178 systolic. No aggravating or relieving factors identified. He describes the chest pain as a dull pressure. Onset (ago): hour(s) Location: chest Radiation: non-radiation Severity: moderate Quality: dull Pain Consistency: intermittent and now resolved Relieving factors: other (Clonidine) Exacerbating factors: none Associated symptoms: Reports denies other symptoms Related Data Home Medications Medication Instructions Recorded Confirmed amlodipine 2.5 mg PO DAILY 09/27/18 09/27/18 aspirin 81 mg PO DAILY 09/27/18 09/27/18 atorvastatin 80 mg PO DAILY 09/27/18 09/27/18 clonidine HCl 0.2 mg PO PRN PRN 09/27/18 09/27/18 clopidogrel 75 mg PO DAILY 09/27/18 09/27/18 lorazepam 0.5 mg PO PRN PRN 09/27/18 09/27/18 losartan 25 mg PO DAILY 09/27/18 09/27/18 magnesium DAILY 09/27/18 metoprolol tartrate 100 mg PO BID 09/27/18 09/27/18 omeprazole 40 mg PO PRN PRN 09/27/18 09/27/18 potassium gluconate 595 mg PO 09/27/18 sertraline 25 mg PO DAILY 09/27/18 09/27/18 Previous Rx's Medication Instructions Recorded isosorbide mononitrate 30 mg PO DAILY@0700 #30 tab 09/29/18 Allergies Allergy/AdvReac Type Severity Reaction Status Date / Time hydrocodone Allergy Severe Anaphylaxis Verified 09/27/18 03:44 acetaminophen Allergy Unknown Anaphylaxis Verified 09/27/18 03:44 oxycodone Allergy Unknown Anaphylaxis Verified 09/27/18 03:44 Review of Systems ROS: all other systems reviewed are negative [facility] Medical History Medical History Carotid stenosis (Acute) Chronic obstructive pulmonary disease (Acute) Coronary artery disease (Acute) History of CVA (cerebrovascular accident) (Acute) History of kidney stones (Acute) History of myocardial infarction (Acute) Hyperlipidemia (Acute) Hypertension (Acute) Sleep apnea (Acute) Surgical History Surgical History History of cardiac catheterization (Acute) History of carotid endarterectomy (Acute) History of heart artery stent (Acute) History of left inguinal hernia repair (Acute) History of right cataract surgery (Acute) Stented coronary artery (Acute) Family History Family History Mother Family history of Alzheimer's disease Brother Family history of kidney disease Social History Social History Substance History: No History of Abuse Second Hand Smoke Exposure: No Smoking Status: Never smoker How Often Do You Have a Drink Containing Alcohol: Never Recent Travel in [facility] within the Last 8 Weeks: No Recent Out of Country Travel within the Last 8 Weeks: No Immunization History Tetanus Immunization: Unsure Exam Narrative Exam Narrative: GENERAL: Awake, alert, no obvious distress SKIN: Focused skin assessment warm/dry. HEAD: Atraumatic. Normocephalic. EYES: Pupils equal and round. No scleral icterus. No injection or drainage. ENT: No nasal bleeding or discharge. Mucous membranes pink and moist. NECK: Trachea midline. No JVD. CARDIOVASCULAR: Regular rate and rhythm. No murmur appreciated. RESPIRATORY: No accessory muscle use. Clear to auscultation. Breath sounds equal bilaterally. GASTROINTESTINAL: Abdomen soft, non-tender, nondistended. Hepatic and splenic margins not palpable. MUSCULOSKELETAL: No obvious deformities. No clubbing. No cyanosis. No edema. NEUROLOGICAL: Awake and alert. No obvious cranial nerve deficits. Motor grossly within normal limits. Normal speech. PSYCHIATRIC: Appropriate mood and affect; insight and judgment normal. Course Initial Documented Vital Signs Temperature 97.5 F L 09/27/18 03:33 Pulse Rate 80 09/27/18 03:33 Respiratory Rate 20 09/27/18 03:33 Blood Pressure 178/86 H 09/27/18 03:33 Pulse Oximetry 96 09/27/18 03:33 Last Documented Vital Signs Temperature 98.3 F 09/29/18 11:00 Pulse Rate 71 09/29/18 13:00 Respiratory Rate 16 09/29/18 11:00 Blood Pressure 127/72 09/29/18 11:00 Pulse Oximetry 95 09/29/18 11:00 Medical Decision Making MDM Narrative Medical decision making narrative: 4:48 AM blood test results are back and within acceptable limits. Chest x-ray is negative. Patient was given 2 baby aspirins. Given his past medical history and the current symptoms I would recommend the patient to be admitted for observation to be ruled out for ACS. Patient is agreeable to the plan I will call the hospitalist to get the patient admitted. Patient continues to remain chest pain-free Medical Screen Exam Complete: Yes Emergency Medical Condition: Yes Lab Data Result diagrams: 09/27/18 04:00 09/27/18 04:00 Lab Results 09/27/18 09/27/18 09/27/18 Range/Units 04:00 04:00 04:00 CBC w Diff Auto diff final WBC 7.9 (4.0-11.0) th/mm3 RBC 4.29 L (4.50-5.90) mil/mm3 Hgb 14.4 (13.0-17.0) gm/dL Hct 42.0 (39.0-51.0) % MCV 97.8 (80.0-100.0) fL MCH 33.5 (27.0-34.0) pg MCHC 34.2 (32.0-36.0) % RDW 12.4 (11.6-17.2) % Plt Count 212 (150-450) th/mm3 MPV 7.0 (7.0-11.0) fL Neut % (Auto) 60.7 (16.0-70.0) % Lymph % (Auto) 28.1 (9.0-44.0) % Rhea % (Auto) 9.3 H (0.0-8.0) % Eos % (Auto) 1.1 (0.0-4.0) % Baso % (Auto) 0.8 (0.0-2.0) % Neut # (Auto) 4.8 (1.8-7.7) th/mm3 Lymph # (Auto) 2.2 (1.0-4.8) th/mm3 Rhea # (Auto) 0.7 (0.0-0.9) th/mm3 Eos # (Auto) 0.1 (0.0-0.4) th/mm3 Baso # (Auto) 0.1 (0.0-0.2) th/mm3 WBC Differential . Differential Comment . PT 11.0 (9.8-11.6) sec INR 1.1 Ratio Sodium 140 (136-145) meq/L Potassium 3.8 (3.5-5.1) meq/L Chloride 108 H (98-107) meq/L Carbon Dioxide 27.2 (21.0-32.0) meq/L Anion Gap 5 (5-15) meq/L BUN 18 (7-18) mg/dL Creatinine 1.10 (0.60-1.30) mg/dL Estimated GFR 65 L (>89) mL/min Random Glucose 104 (74-106) mg/dL Calcium 7.9 L (8.5-10.1) mg/dL Total Bilirubin 0.7 (0.2-1.0) mg/dL AST 24 (15-37) U/L ALT 23 (12-78) U/L Alkaline Phosphatase 88 (45-117) U/L Total Creatine Kinase (39-308) U/L Troponin I Less than 0.02 L (0.02-0.05) ng/mL Total Protein 6.6 (6.4-8.2) g/dL Albumin 3.6 (3.4-5.0) g/dL Triglycerides (42-150) mg/dL Cholesterol (120-200) mg/dL LDL Cholesterol, Calc (0-99) mg/dL HDL Cholesterol (40.0-60.0) mg/dL Cholesterol/HDL Ratio Ratio 09/27/18 09/27/18 09/28/18 Range/Units 06:40 08:45 05:50 CBC w Diff WBC (4.0-11.0) th/mm3 RBC (4.50-5.90) mil/mm3 Hgb (13.0-17.0) gm/dL Hct (39.0-51.0) % MCV (80.0-100.0) fL MCH (27.0-34.0) pg MCHC (32.0-36.0) % RDW (11.6-17.2) % Plt Count (150-450) th/mm3 MPV (7.0-11.0) fL Neut % (Auto) (16.0-70.0) % Lymph % (Auto) (9.0-44.0) % Rhea % (Auto) (0.0-8.0) % Eos % (Auto) (0.0-4.0) % Baso % (Auto) (0.0-2.0) % Neut # (Auto) (1.8-7.7) th/mm3 Lymph # (Auto) (1.0-4.8) th/mm3 Rhea # (Auto) (0.0-0.9) th/mm3 Eos # (Auto) (0.0-0.4) th/mm3 Baso # (Auto) (0.0-0.2) th/mm3 WBC Differential Differential Comment PT (9.8-11.6) sec INR Ratio Sodium (136-145) meq/L Potassium (3.5-5.1) meq/L Chloride (98-107) meq/L Carbon Dioxide (21.0-32.0) meq/L Anion Gap (5-15) meq/L BUN (7-18) mg/dL Creatinine (0.60-1.30) mg/dL Estimated GFR (>89) mL/min Random Glucose (74-106) mg/dL Calcium (8.5-10.1) mg/dL Total Bilirubin (0.2-1.0) mg/dL AST (15-37) U/L ALT (12-78) U/L Alkaline Phosphatase (45-117) U/L Total Creatine Kinase 251 235 (39-308) U/L Troponin I Less than 0.02 L Less than 0.02 L (0.02-0.05) ng/mL Total Protein (6.4-8.2) g/dL Albumin (3.4-5.0) g/dL Triglycerides 77 (42-150) mg/dL Cholesterol 157 (120-200) mg/dL LDL Cholesterol, Calc 108 H (0-99) mg/dL HDL Cholesterol 33.8 L (40.0-60.0) mg/dL Cholesterol/HDL Ratio 4.64 Ratio Imaging Data Radiologist's impression: Myocardial Perfusion Scan Nuc Med 09/27/18 00:00 CONCLUSION: 1. Mild to moderate size area of stress-induced ischemia in the anterior septal wall. Chest X-Ray 09/27/18 03:51 CONCLUSION: No acute cardiopulmonary disease demonstrated. ECG Data Attestation: I personally reviewed and interpreted this ECG as follows: Interpretation: Twelve-lead EKG was reviewed by me. Normal sinus rhythm, left axis deviation, nonspecific ST-T wave changes. Heart rate of 63 bpm. Discharge Plan Discharge Disposition Patient Disposition: 30 Still Patient Discharge Condition Condition: Good Discharge Order Discharge Orders: Discharge Order (Routine); Ordered 09/29/18 Ordered By: Shay Medeiros Physicians Team ED Provider: Brooke Witt Primary Care Provider: John Crandall Attending Provider: Shay Medeiros Other Providers: Brant Guo ; Priscilla Guerrero Status ED Status: Left Department Discharge Information Discharge Date/Time: 09/27/18 06:09
[2018-09-27] MEDS ORDERED: Iohexol 350 MG/ML 100 ML Vial (for Cath Lab) IVCONTRAST ONE (05:09)
[2018-09-27 07:33] LABS: Creatine Kinase 251 U/L (39-308)
--- NOTE | 2018-09-27 08:22 | P.HP ---
History of Present Illness Primary Care Physician: John Crandall MD Chief Complaint: Elevated blood pressure History of Present Illness: 73-year-old male with known history of hypertension, hyperlipidemia, coronary disease, cardiac stenting, sleep apnea, chronic obstructive pulmonary disease who presented to the hospital for evaluation of elevated blood pressure. Patient states that his normal state of health last night and he went bowling with his [employer] league last evening. He got home approximately 10 PM and everything was going well. He went to sleep and he started having a funny sensation in his facial region which he states happens whenever he knows his blood pressure is elevated. He got up and took his blood pressure and it is systolic pressure was in the 200s so he took his as needed clonidine. He started developing intermittent sharp stabbing type pain in the middle part of his chest without any radiation to the neck, back, shoulder, arm, he denied any shortness of breath, dyspnea, lightheadedness, dizziness, diaphoresis. This the patient was still not feeling completely well he came to emergency department for evaluation. When the patient presented to the emergency department blood pressure is 178/76. Since then his blood pressure has continued to improve without any additional medications given in the emergency department. Patient did indicate he had approximately 2 episodes of the chest discomfort. Because of those reasons is recommended by the ER physician that the patient be observed for further evaluation and management. Patient is followed by Dr. Rojo on a regular basis. He denies any recent cardiac stress testing. - Diagnosis (1) Chest pain (2) Accelerated hypertension Review of Systems All other systems reviewed negative except as stated in HPI Cardiovascular: Reports chest pain PMF - History History Provided By: Patient - Medical History Medical History: Medical History (Last Updated 09/27/18 @ 08:11 by CYNTHIA Schneider) Carotid stenosis Chronic obstructive pulmonary disease Coronary artery disease History of CVA (cerebrovascular accident) History of kidney stones History of myocardial infarction Hyperlipidemia Hypertension Sleep apnea - Surgical History Surgical History: Surgical History (Last Updated 09/27/18 @ 08:14 by CYNTHIA Schneider) History of cardiac catheterization History of carotid endarterectomy History of heart artery stent History of left inguinal hernia repair History of right cataract surgery Stented coronary artery - Family History Family History: Family History (Last Updated 09/27/18 @ 08:15 by CYNTHIA Schneider) Mother Family history of Alzheimer's disease Brother Family history of kidney disease - Tobacco History Second Hand Smoke Exposure: No Tobacco Use In Past 30 Days: No Smoking Status: Never smoker - Alcohol History How Often Do You Have a Drink Containing Alcohol: Never - Substance Use History Substance History: No History of Abuse - Travel History Recent Travel in the [place] Within the Last 8 Weeks: No Recent Travel Out of the Country Within the Last 8 Weeks: No - Immunization History Tetanus Immunization: Unsure Medications and Allergies Active Medications: Active Medications Amlodipine Besylate (Norvasc) 2.5 mg PO DAILY [facility] Aspirin (Aspirin Chew) 81 mg PO DAILY [facility] Atorvastatin Calcium (Lipitor) 80 mg PO DAILY [facility] Clonidine HCl (Catapres) 0.2 mg PO PRN PRN PRN Reason: Blood Pressure Clopidogrel Bisulfate (Plavix) 75 mg PO DAILY MILES Losartan Potassium (Cozaar) 25 mg PO DAILY [facility]ES Metoprolol Tartrate (Lopressor) 100 mg PO BID MILES Pantoprazole Sodium (Protonix) 40 mg PO DAILY MILES Sertraline HCl (Zoloft) 25 mg PO DAILY MILES Sodium Chloride (Ns Flush) 2 ml IV.FLUSH BID MILES Sodium Chloride (Ns Flush) 2 ml IV.FLUSH PRN PRN PRN Reason: FLUSH AFTER USING IV ACCESS Allergies Allergy/AdvReac Type Severity Reaction Status Date / Time hydrocodone Allergy Severe Anaphylaxis Verified 09/27/18 03:44 acetaminophen Allergy Unknown Anaphylaxis Verified 09/27/18 03:44 oxycodone Allergy Unknown Anaphylaxis Verified 09/27/18 03:44 Home Medications Medication Instructions Recorded Confirmed Type amlodipine 2.5 mg PO DAILY 09/27/18 09/27/18 History aspirin 81 mg PO DAILY 09/27/18 09/27/18 History atorvastatin 80 mg PO DAILY 09/27/18 09/27/18 History clonidine HCl 0.2 mg PO PRN PRN 09/27/18 09/27/18 History clopidogrel 75 mg PO DAILY 09/27/18 09/27/18 History lorazepam 0.5 mg PO PRN PRN 09/27/18 09/27/18 History losartan 25 mg PO DAILY 09/27/18 09/27/18 History magnesium DAILY 09/27/18 History metoprolol tartrate 100 mg PO BID 09/27/18 09/27/18 History omeprazole 40 mg PO PRN PRN 09/27/18 09/27/18 History potassium gluconate 595 mg PO 09/27/18 History sertraline 25 mg PO DAILY 09/27/18 09/27/18 History Exam Vital signs: Vital Signs 09/27/18 03:33 09/27/18 04:04 09/27/18 04:35 Temperature 97.5 F L Pulse Rate 80 68 78 Respiratory Rate 20 16 16 Blood Pressure 178/86 H 151/80 H 152/78 H Pulse Oximetry 96 98 99 09/27/18 05:15 09/27/18 05:38 09/27/18 05:43 Temperature Pulse Rate 68 66 Respiratory Rate 16 16 Blood Pressure 113/68 117/65 Pulse Oximetry 99 99 09/27/18 06:07 Temperature Pulse Rate 66 Respiratory Rate 16 Blood Pressure 117/68 Pulse Oximetry Intake & Output 09/26/18 09/27/18 09/27/18 18:59 06:59 18:59 Intake Total 0 / 0 Output Total 0 / 0 Balance 0 / 0 Weight 75.7 kg Intake: Oral 0 / 0 Output: Urine 0 / 0 Other: # Voids 1 Date of Last Bowel Movement 09/27/18 Weight On Admission 75.7 kg Narrative: GENERAL: Well-developed, well-nourished, in no acute distress. alert and orientated HEENT: Head is normocephalic without any lesions or masses noted. Facial features are symmetric. Eyes: Pupils equal round reactive to light. Extraocular muscles are intact. Conjunctivae were clear. Oropharyngeal: Pharynx without any erythema edema. Tongue is midline without deviation. Buccal mucosa is moist without any masses or lesions NECK: Supple without any masses. Trachea midline no deviation. No JVD, no bruits are appreciated CARDIAC: Regular rhythm, regular rate. S1/S2 are heard. No murmurs gallops or rubs. LUNGS: Clear to auscultation bilaterally. No wheeze, rhonchi or rales. No use of accessory muscles on inspiration or expiration. ABDOMEN: Soft, nontender. Nondistended. Bowel sounds heard in all 4 quadrants. No organomegaly or masses. Negative rebound, negative guarding EXTREMITIES: No edema, pulses are equal bilaterally. No cyanosis or clubbing NEUROLOGY: Mood and affect appear appropriate. Cranial nerves II through XII grossly intact. Muscle strength 5/5 in upper and lower extremities bilaterally. Deep tendon reflexes are 2+ in upper and lower extremities bilaterally. Results - Labs CBC & Chem 7: 09/27/18 04:00 09/27/18 04:00 Labs: Laboratory Results - last 24 hr 09/27/18 09/27/18 09/27/18 04:00 04:00 04:00 CBC w Diff Auto diff final WBC 7.9 RBC 4.29 L Hgb 14.4 Hct 42.0 MCV 97.8 MCH 33.5 MCHC 34.2 RDW 12.4 Plt Count 212 MPV 7.0 Neut % (Auto) 60.7 Lymph % (Auto) 28.1 [place] % (Auto) 9.3 H Eos % (Auto) 1.1 Baso % (Auto) 0.8 Neut # (Auto) 4.8 Lymph # (Auto) 2.2 [place] # (Auto) 0.7 Eos # (Auto) 0.1 Baso # (Auto) 0.1 WBC Differential . Differential Comment . PT 11.0 INR 1.1 Sodium 140 Potassium 3.8 Chloride 108 H Carbon Dioxide 27.2 Anion Gap 5 BUN 18 Creatinine 1.10 Estimated GFR 65 L Random Glucose 104 Calcium 7.9 L Total Bilirubin 0.7 AST 24 ALT 23 Alkaline Phosphatase 88 Total Creatine Kinase Troponin I Less than 0.02 L Total Protein 6.6 Albumin 3.6 09/27/18 06:40 CBC w Diff WBC RBC Hgb Hct MCV MCH MCHC RDW Plt Count MPV Neut % (Auto) Lymph % (Auto) [place] % (Auto) Eos % (Auto) Baso % (Auto) Neut # (Auto) Lymph # (Auto) [place] # (Auto) Eos # (Auto) Baso # (Auto) WBC Differential Differential Comment PT INR Sodium Potassium Chloride Carbon Dioxide Anion Gap BUN Creatinine Estimated GFR Random Glucose Calcium Total Bilirubin AST ALT Alkaline Phosphatase Total Creatine Kinase 251 Troponin I Less than 0.02 L Total Protein Albumin - Imaging Impressions Chest X-Ray 09/27/18 03:51 CONCLUSION: No acute cardiopulmonary disease demonstrated. Caprini VTE Risk Assessment Caprini VTE Risk Assessment: Moderate/High Risk (score >= 2) Caprini Risk Assessment Model: Point Value = 1 Point Value = 2 Point Value = 3 Point Value = 5 Age 41-60 Minor surgery BMI > 25 kg/m2 Swollen legs Varicose veins or History of unexplained or recurrent spontaneous Oral contraceptives or hormone replacement Sepsis (< 1 month) Serious lung disease, including pneumonia (< 1 month) Abnormal pulmonary function Acute myocardial infarction Congestive heart failure (< 1 month) History of inflammatory bowel disease Medical patient at bed rest Age 61-74 Arthroscopic surgery Major open surgery (> 45 min) Laparoscopic surgery (> 45 min) Malignancy Confined to bed (> 72 hours) Immobilizing plaster cast Central venous access Age >= 75 History of VTE Family history of VTE Factor V Leiden Prothrombin [id number] Lupus anticoagulant Anticardiolipin antibodies Elevated serum homocysteine Heparin-induced thrombocytopenia Other congenital or acquired thrombophilia Stroke (< 1 month) Elective arthroplasty Hip, pelvis, or leg fracture Acute spinal cord injury (< 1 month) Prophylaxis Regimen: Total Risk Factor Score Risk Level Prophylaxis Regimen 0-1 Low Early ambulation 2 Moderate Order ONE of the following: *Sequential Compression Device (SCD) *Heparin 5000 units SQ BID 3-4 Higher Order ONE of the following medications: *Heparin 5000 units SQ TID *Enoxaparin/Lovenox 40 mg SQ daily (WT < 150 kg, CrCl > 30 mL/min) *Enoxaparin/Lovenox 30 mg SQ daily (WT < 150 kg, CrCl > 10-29 mL/min) *Enoxaparin/Lovenox 30 mg SQ BID (WT < 150 kg, CrCl > 30 mL/min) AND/OR *Sequential Compression Device (SCD) 5 or more Highest Order ONE of the following medications: *Heparin 5000 units SQ TID (Preferred with Epidurals) *Enoxaparin/Lovenox 40 mg SQ daily (WT < 150 kg, CrCl > 30 mL/min) *Enoxaparin/Lovenox 30 mg SQ daily (WT < 150 kg, CrCl > 10-29 mL/min) *Enoxaparin/Lovenox 30 mg SQ BID (WT < 150 kg, CrCl > 30 mL/min) AND *Sequential Compression Device (SCD) Assessment and Plan - Assessment (1) Chest pain Code(s): R07.9 - Chest pain, unspecified Status: Acute (2) Accelerated hypertension Code(s): I10 - Essential (primary) hypertension Status: Acute - Plan Chest pain, atypical -Patient does have increased risk factors include age, male, hypertension, hyper lipidemia, coronary artery disease, history of tobacco use -Patient has been ruled out for acute coronary event with serial cardiac enzymes that are negative -Serial EKGs reviewed by myself and indicated normal sinus rhythm without any changes -Myocardial perfusion study was performed and indicated moderate size area redistribution, stress-induced ischemia in the anterior septal wall. -Results of the stress test was discussed with Dr. Rojo, who indicates that patient will need to be transferred to the main hospital for cardiac catheterization. -Patient will be optimized on medications to include aspirin, beta-vashti, nitroglycerin, ARB, Plavix, statin Accelerated hypertension, resolved -Home medications have been continued Hyperlipidemia, coronary artery disease, COPD -Home medications have been continued -Check lipid panel DVT prevention -Sequential compression devices
[2018-09-27] MEDS: amLODIPine 5 MG Tablet PO SCH (09:07)
[2018-09-27] MEDS: Metoprolol Tartrate 50 MG Tablet PO SCH ×2 (09:07→20:57)
[2018-09-27] MEDS: Sertraline 50 MG Tablet PO SCH (09:08)
[2018-09-27 09:22] LABS: Creatine Kinase 235 U/L (39-308)
[2018-09-27] MEDS ORDERED: Regadenoson Inj 0.4 MG/5 ML Syringe IV.PUSH ONE (10:37)
--- NOTE | 2018-09-27 11:56 | NM ---
EXAM DATE: 09/27/2018 11:52 AM EDT AGE/SEX: 73 years / Male INDICATIONS:Angina. Coronary artery bypass grafting Chest pain. CLINICAL DATA: This is the patient's initial encounter. Patient reports that signs and symptoms have been present for 1 day and indicates a pain score of 4/10. MEDICAL/SURGICAL HISTORY: Hypertension. Chronic obstructive pulmonary disease. Inguinal hernia repair. Coronary artery stent. COMPARISON: No prior exams available for comparison. DOSE: 8.1 mCi Tc 99m Myoview at rest 26.3 mCi [id number] at stress 0.4 mg Lexiscan STRESS SYMPTOMS: Nausea. EJECTION FRACTION: 60 % TECHNIQUE: The patient underwent pharmacologic stress with infusion of prescribed dose. Continuous ECG tracing was monitored during stress. Gated SPECT imaging was performed after stress and conventi onal SPECT imaging was performed at rest. The examination was performed on a SPECT/CT scanner, both attenuation and non-corrected datasets were reviewed. FINDINGS: There is moderate size area redistribution in the anterior septal wall beginning in mid ventricular w all extending towards the apex. There is no associated ventricular wall motion abnormality. Ejection fraction is 60%. . RISK CATEGORY: Low (<1% Annual Motality Rate) CONCLUSION: 1. Mild to moderate size area of stress-induced ischemia in the anterior septal wall. Electronically signed by: Vishnu Gage MD 09/27/2018 11:55 AM EDT
--- NOTE | 2018-09-27 18:12 | ECG ---
Date Performed: 09/27/2018 Time Performed: 04:14:57 PTAGE: 73 years EKG: Sinus rhythm MARKED LEFT AXIS DEVIATION ABNORMAL ECG PREVIOUS TRACING : 01/31/2018 11.16 Since the previous tracing, no significant change noted DOCTOR: Carlitos Ngo Interpretating Date/Time 09/27/2018 18:10:41
--- NOTE | 2018-09-27 18:12 | ECG ---
Date Performed: 09/27/2018 Time Performed: 08:47:00 PTAGE: 73 years EKG: SINUS BRADYCARDIA BORDERLINE LEFT AXIS DEVIATION BORDERLINE ECG PREVIOUS TRACING : 09/27/2018 04.14 Since the previous tracing, no significant change noted DOCTOR: Carlitos Ngo Interpretating Date/Time 09/27/2018 18:10:27
--- NOTE | 2018-09-28 07:09 | P.PNIM ---
Subjective Interval history: Follow-up chest pain and abnormal Lexiscan. Patient seen and examined, patient is lying in bed comfortably no apparent distress. Denies any pain overnight. He slept well. Awaiting transfer to main hospital for cardiac catheterization. Patient is n.p.o. since midnight. Denies any shortness of breath, dumping, nausea, vomiting, diarrhea or dysuria. Vital signs stable. Afebrile. Physical Exam Vital signs: Vital Signs 09/27/18 08:00 09/27/18 12:00 09/27/18 16:00 Temperature 97.0 F L 97.6 F 97.0 F L Pulse Rate 55 L 61 55 L Respiratory Rate 17 17 16 Blood Pressure 118/66 108/57 L 111/56 L Pulse Oximetry 96 94 L 94 L 09/27/18 20:00 09/28/18 00:00 09/28/18 04:00 Temperature 97.3 F L 97.7 F 96.5 F L Pulse Rate 59 L 54 L 57 L Respiratory Rate 18 18 18 Blood Pressure 81/50 L 99/53 L 137/74 Pulse Oximetry 94 L 95 93 L Intake & Output 09/27/18 09/28/18 09/28/18 18:59 06:59 18:59 Intake Total 480 / 480 300 / 300 Output Total 650 / 650 Balance 480 / 480 -350 / -350 Weight 73.6 kg Intake: Oral 480 / 480 300 / 300 Output: Urine 650 / 650 Other: # Voids 4 Date of Last Bowel Movement 09/26/18 # Bowel Movements 0 Narrative: GENERAL: Well-developed, well-nourished, in no acute distress. alert and orientated HEENT: Head is normocephalic without any lesions or masses noted. Facial features are symmetric. Eyes: Pupils equal round reactive to light. Extraocular muscles are intact. Conjunctivae were clear. Oropharyngeal: Pharynx without any erythema edema. Tongue is midline without deviation. Buccal mucosa is moist without any masses or lesions NECK: Supple without any masses. Trachea midline no deviation. No JVD, no bruits are appreciated CARDIAC: Regular rhythm, regular rate. S1/S2 are heard. No murmurs gallops or rubs. LUNGS: Clear to auscultation bilaterally. No wheeze, rhonchi or rales. No use of accessory muscles on inspiration or expiration. ABDOMEN: Soft, nontender. Nondistended. Bowel sounds heard in all 4 quadrants. No organomegaly or masses. Negative rebound, negative guarding EXTREMITIES: No edema, pulses are equal bilaterally. No cyanosis or clubbing NEUROLOGY: Mood and affect appear appropriate. Cranial nerves II through XII grossly intact. Muscle strength 5/5 in upper and lower extremities bilaterally. Deep tendon reflexes are 2+ in upper and lower extremities bilaterally. Results - Labs CBC & Chem 7: 09/27/18 04:00 09/27/18 04:00 Laboratory Results - last 24 hr 09/27/18 09/27/18 06:40 08:45 Total Creatine Kinase 251 235 Troponin I Less than 0.02 L Less than 0.02 L - Imaging Impressions Myocardial Perfusion Scan Nuc Med 09/27/18 00:00 CONCLUSION: 1. Mild to moderate size area of stress-induced ischemia in the anterior septal wall. Assessment and Plan - Assessment (1) Chest pain Code(s): R07.9 - Chest pain, unspecified Status: Acute (2) Accelerated hypertension Code(s): I10 - Essential (primary) hypertension Status: Acute - Plan Is a 73-year-old male patient with: Chest pain, atypical -Patient does have increased risk factors include age, male, hypertension, hyper lipidemia, coronary artery disease, history of tobacco use -Patient has been ruled out for acute coronary event with serial cardiac enzymes that are negative. -Serial EKGs reviewed and indicated normal sinus rhythm without any changes -Myocardial perfusion study was performed and indicated moderate size area redistribution, stress-induced ischemia in the anterior septal wall. -Results of the stress test was discussed with Dr. Rojo, who indicated that patient will need to be transferred to the main hospital for cardiac catheterization. Patient will undergo cardiac catheterization this morning. -Patient will be optimized on medications to include aspirin, beta-vashti, nitroglycerin, ARB, Plavix, statin Accelerated hypertension, resolved -Home medications have been continued Hyperlipidemia, coronary artery disease, COPD -Home medications have been continued -Check lipid panel, pending. DVT prevention -Sequential compression devices
[2018-09-28] MEDS: Metoprolol Tartrate 50 MG Tablet PO SCH ×2 (08:48→20:33)
[2018-09-28] MEDS: amLODIPine 5 MG Tablet PO SCH (08:48)
[2018-09-28] MEDS: Sertraline 50 MG Tablet PO SCH (08:49)
[2018-09-28 10:14] LABS: Chol/HDL Ratio 4.64 Ratio; HDL Cholesterol 33.8 mg/dL (40.0-60.0)
[2018-09-28] MEDS ORDERED: Heparin 10,000 UNITS/10 ML Vial (for IV use) ONE (10:29)
[2018-09-28] MEDS ORDERED: Heparin/NS PF Inj 1,000 ML ONE (10:29)
[2018-09-28] MEDS ORDERED: Lidocaine PF 1% Inj 30 ML Vial ONE (10:38)
[2018-09-28] MEDS ORDERED: fentaNYL Citrate Inj 100 MCG/2 ML Ampul ONE (10:56)
[2018-09-28] MEDS ORDERED: fentaNYL Citrate Inj 100 MCG/2 ML Ampul IV.PUSH ONE ×2 (10:57→11:06)
[2018-09-28] MEDS ORDERED: Heparin 10,000 UNITS/10 ML Vial (for IV use) IV.PUSH ONE (11:04)
--- NOTE | 2018-09-28 11:28 | CATHPROC ---
[employer] HIS Report Study Information Study Number Admission Scheduled Start Study Start [id number] Sep 27 2018 5:08AM 09/28/2018 Sep 28 2018 10:20AM [facility] Cardiac Catheterization Admit Source Facility Department Other [facility] - [facility] Operator Physician and Clinical Staff Initial MD Guerrero, Priscilla Global Logistics Analyst Estuardo GillRN Recorder Poornima Craven,CRAFT ARTIST TECH2 Scrub Ramya Cabral,RT(R) (BS) Procedures Performed Procedure Location (Site) Vessel Name Coronary Angiograms LCA Left Coronary Coronary Angiograms RCA Right Coronary L Heart Cath Wire insertion Fem Art (right) Femoral Art Equipment Time Hoop Flaring Machine Operator Helper Description Size Mfg Part Number Used/Scraped TRANSDUCER, TRUWAVE [id number] 10:27 BURT SINGH * Used W/STOCKCOCK *[id number] 10:27 [facility] SUPPORT, ARTERIAL ADULT [id number] Used [id number]-21-2.5 10:27 [employer] NEEDLE, PERCUTANEOUS ENTRY 21G X 2.5CM Used *[id number] 10:27 [employer] BLANKET,WARM AIR CCL * Used *[id number] 10:27 [employer] PACK, CCL CUSTOM * Used *[id number] 10:34 [employer] JL 3.5 DXTERITY CATHETER FR 6 [id number] Used 10:33 [employer] JR 4.0 DXTERITY CATHETER FR 6 [id number] Used BAND, RADIAL COMPRESSION TR [id number] 11:15 [employer] 29CM Used LARGE 29 *[id number] 10:27 [employer] WIRE, EXCHANGE 260CM 3MMJ 260CM Used *[id number] 10:27 NAMIC MANIFOLD, 4 PORT * Used *[id number] 10:27 [employer]COMED OMNIPAQUE, 350 MG, 150ML 150ML [id number] Used SHEATH, FR6 TRANSRADIAL [id number] 10:27 [employer] FR 6 Used SLENDER 10CM *[id number] Equipment Model, Serial, Lot Number and Expiration Data Description Model Number Serial Number Lot Number Expiration Date JL 3.5 DXTERITY CATHETER [id number] 06-17-2021 JR 4.0 DXTERITY CATHETER [id number] 06-24-2021 History: Current Medications Medication Dosage/Unit Route Frequency Last Date/Time Taken Statins (any) ASA History: Risk Factors Family History of Hypertension Dyslipidemia Previous [facility] Previous Heart Failure Premature CAD Yes Yes No Yes No Prior Valve Prior PCI Prior CABG Surgery No Yes No Cerebrovascular Peripheral Artery Chronic Lung On Dialysis Diabetes Disease Disease Disease No No No No No History: Symptoms/Diagnosis Selection Items Angina-unstable History: CV Disease Selection Items Known CAD History: Stress Tests Stress or Imaging Studies Performed Yes Standard Exercise Stress Test No Stress Echo No Stress Test SPECT No Stress Test CMR Stress Test CMR Result Stress Test CMR Ischemia Risk/Extent Yes Positive Intermediate Cardiac CTA Coronary Calcium Score No No History: Other Disease Selection Items CAD HTN Labs Hgb (g/dl) Hct (%) RBC (MIL/MM3) WBC (l/cumm) Platelets (thousands) 11.60-17.00 35.00-51.00 4.00-5.90 4.00-11.00 150.00-450.00 14.4 42 4.2 7.9 212 Glucose (mg/dl) BUN (mg/dl) Creatinine (mg/dl) BUN:Creatinine (1:x) 74.00-106.00 7.00-18.00 0.50-1.30 10.00-20.00 104 18 1.1 16.4 Na (meq/l) K (meq/l) Cl (meq/l) CO2 (mmol/L) 136.00-145.00 3.50-5.10 98.00-107.00 21.00-32.00 140 3.8 108 27.2 Medication Medication Total Dose (Bolus/Oral) Medication Total Dosage/Unit 1% XYLOCAINE 5 mL FENTANYL 75 mcg HEPARIN 5000 units OXYGEN 2 l/min RADIAL COCKTAIL 5 mL (Bolus) VERSED 3 mg Medications (Bolus/Oral) Medication Time Given Dosage/Unit Administered By Reason 09/28/2018 10:56:43 VERSED 2 mg Estuardo Gill AM 2 mg VERSED given in lab by Estuardo Gill, RN in Left Antecubital via Peripheral IV. Ordered by Priscilla Guerrero. 09/28/2018 10:57:28 1% XYLOCAINE 5 mL Priscilla Guerrero AM 5 mL 1% XYLOCAINE given in lab by Priscilla Guerrero in Right Radial via Subcutaneous. Ordered by Bud Guerrero 09/28/2018 10:57:45 FENTANYL 50 mcg Estuardo Gill AM 50 mcg FENTANYL given in lab by Estuardo Gill RN in Left Antecubital via Peripheral IV. Ordered by Aalok. Margi 09/28/2018 10:59:42 Ntg 200mcg Verapamil 2.5mg Heparin RADIAL COCKTAIL 5 mL (Bolus) Jairo, Estuardo AM 3000U 5 mL (Bolus) RADIAL COCKTAIL given in lab by Estuardo Gill RN via Radial. Using [Solution Name]. Orde red by Priscilla Guerrero. Reason: Ntg 200mcg Verapamil 2.mg 09/28/2018 11:03:45 OXYGEN 2 l/min Jairo, Estuardo AM 2 l/min OXYGEN given in lab by Estuardo Gill RN via Nasal. Ordered by Priscilla Guerrero. 09/28/2018 11:04:30 HEPARIN 5000 units Jairo, Estuardo AM 5000 units HEPARIN given in lab by Estuardo Gill RN in Left Antecubital via Peripheral IV. Ordered by Priscilla Guerrero. 09/28/2018 11:06:34 FENTANYL 25 mcg Jairo, Estuardo AM 25 mcg FENTANYL given in lab by Estuardo Gill RN in Left Antecubital via Peripheral IV. Ordered by Aalok. Margi 09/28/2018 11:09:40 VERSED 1 mg Estuardo Gill AM 1 mg VERSED given in lab by Estuardo Gill RN in Left Antecubital via Peripheral IV. Ordered by Priscilla Guerrero. Medication (Drip) Medication Time Given Dosage/Unit Concentration/Unit Diluent (ml) Solution 09/28/2018 10:25:58 IV Solutions 0 mL (IV) 500 NaCl .9 AM IV Solutions given in lab by Estuardo Gill RN in Left Antecubital via Peripheral IV. Pump/Drip Flow = 20 ml/hr using NaCl .9. Ordered by Priscilla uGerrero. Initial Case Assessment Cardiovascular HR NIBP 65 146/74 Edema Present Skin color Skin None Normal Warm Dry Circulatory - Right Pulses Dorsalis Pedis Femoral Radial 1 3 3 Scale (0,1,2,3,4,d) Circulatory - Left Pulses Dorsalis Pedis Femoral Radial 1 3 Scale (0,1,2,3,4,d) Neurological State Oriented to time-place- Alert Moves all extremities person Respiration - General Respiration Rate SpO2 (%) (B/min) 16 94 Final Case Assessment Cardiovascular HR NIBP 58 99/54 Edema Present Skin color Skin None Normal Warm Dry Circulatory - Right Pulses Dorsalis Pedis Femoral Radial 1 3 3 Scale (0,1,2,3,4,d) Circulatory - Left Pulses Dorsalis Pedis Femoral Radial 1 3 Scale (0,1,2,3,4,d) Neurological State Oriented to time-place- Alert Moves all extremities person Respiration - General Respiration Rate SpO2 (%) (B/min) 10 97 Chronological Log Time Study Chronological Log 10:25:23 Patient arrived via Bed. 10:25:43 Patient Name, D.O.B, / Armband Verified By R.N. 10:25:44 Consent signed by the physician and the patient and verified by the [facility]toluene Operator staff. 10:25:47 Allens test performed on the right radial and ulnar artery. 10:25:49 Patient has been NPO for More than 6Hrs. 10:25:50 Skin Breakdown- 10:25:54 Patient Warmer Placed on the Table. 10:25:57 A # 20 IV was noted in the Antecubital (left). Grade = 0 IV Solutions given in lab by Estuardo Gill, RN in Left Antecubital via Peripheral IV. Pump/Drip Flow = 20 ml/hr using 10:25:58 NaCl .9. Ordered by Priscilla Guerrero. 10:25:59 History and physical on the chart or being dictated. Vitals capture started with the following parameters, Patient=Adult, Interval=5 min, Initial Pr vpqljv=229 mmHg, 10:27:22 Deflation Rate=5 mmHg, Cuff placed on Left Arm 10:28:32 HR=65 bpm, CKBS=549/74 mmhg, SpO2=94.0 %, Resp=16 B/min, Pain=0, Lilliam=10, Meza=2 Assessment: Initial Case, HR=65 BPM, SADU=952/74 mmhg, Edema=None, Color=Normal, Skin = Warm, D ry Right Pulses: José Antonio Ped=1, Femoral=3, Radial=3 10:29:51 Left Pulses: José Antonio Ped=1, Femoral=3 Neurological: State=Alert, Ox3, KOWALSKI Respiration: Resp=16 B/min, SpO2=94 % 10:33:02 HR=62 bpm, IKOP=889/69 mmhg, SpO2=97.0 %, Resp=17 B/min, Pain=0, Lilliam=10, Meza=2 10:34:01 Reference ECG taken 10:38:02 HR=61 bpm, KKFF=286/69 mmhg, SpO2=96.0 %, Resp=11 B/min, Pain=0, Lilliam=10, Emza=2 10:43:01 HR=63 bpm, HPRN=794/67 mmhg, SpO2=97.0 %, Resp=18 B/min, Pain=0, Lilliam=10, Meza=2 10:43:25 Right Radial and groin(s) prepped with 2% chlorhexidine, and draped after a 3 min. waiting time. 10:48:04 HR=63 bpm, OOIN=529/62 mmhg, SpO2=97.0 %, Resp=10 B/min, Pain=0, Lilliam=10, Meza=2 10:50:11 Pressure channel 1 zeroed. 10:53:00 HR=62 bpm, XBXY=305/70 mmhg, SpO2=97.0 %, Resp=13 B/min, Pain=0, Lilliam=10, Meza=2 Time Out. Correct patient, correct procedure, correct physician, labs, allergies, and equipment verified with lab support tech 10:56:41 team present. Fire risk assesment completed (see hard stop sheet for coding). Time Out Conc urred by MD and individual staff in procedure. 10:56:43 2 mg VERSED given in lab by Estuardo Gill RN in Left Antecubital via Peripheral IV. Ordered by Priscilla Guerrero. 10:56:43 Case Start 10:57:28 5 mL 1% XYLOCAINE given in lab by Priscilla Guerrero in Right Radial via Subcutaneous. Ordered by Priscilla Guerrero. 10:57:45 50 mcg FENTANYL given in lab by Estuardo Gill RN in Left Antecubital via Peripheral IV. Ord ered by Priscilla Guerrero. 10:58:06 HR=63 bpm, IMVV=319/73 mmhg, SpO2=97.0 %, Resp=15 B/min, Pain=0, Lilliam=10, Meza=2 10:58:56 Access site was Right Radial Artery . A SHEATH, FR6 TRANSRADIAL SLENDER 10CM FR 6 was advanced into the Radial (right) using the Spring fied Seldinger 10:59:11 technique. 5 mL (Bolus) RADIAL COCKTAIL given in lab by Estuardo Gill RN via Radial. Using [Solution Name] . Ordered by Cesar, 10:59:42 Priscilla. Reason: Ntg 200mcg Verapamil 2.mg A JR 4.0 DXTERITY CATHETER FR 6 was advanced over a wire. OMNIPAQUE, 350 MG, 150ML 150ML was us ed for 11:01:28 injections. Recorded Pressure: LV, HR=72, Condition=Condition 1 11:02:38 (Left Ventricle) LV 65/1/3 11:03:05 HR=70 bpm, NIBP=92/52 mmhg, SpO2=86.0 %, Resp=15 B/min, Pain=0, Lilliam=10, Meza=2 Recorded Pressure: LV, Ao, HR=67, Condition=Condition 1 11:03:24 (Left Ventricle) LV 68/-1/2, (Aorta) Ao 64/35/49 11:03:45 2 l/min OXYGEN given in lab by Estuardo Gill RN via Nasal. Ordered by Priscilla Guerrero. 11:04:14 The RCA was injected and visualized at various angles. OMNIPAQUE, 350 MG, 150ML 150ML used . 11:04:30 5000 units HEPARIN given in lab by Estuardo Gill RN in Left Antecubital via Peripheral IV. Ordered by Priscilla Guerrero. 11:04:58 Patient defibrillated at 200 joules. The ECG rhythm was noted as V-Fib. Recorded Pressure: Ao, HR=92, Condition=Condition 1 11:05:35 (Aorta) Ao 128/59/86 After removing the current catheter a JL 3.5 DXTERITY CATHETER FR 6 was advanced over a WIRE, E XCHANGE 260CM 11:06:02 3MMJ 260CM. 11:06:34 25 mcg FENTANYL given in lab by Estuardo Gill RN in Left Antecubital via Peripheral IV. Ord ered by Priscilla Guerrero. 11:08:28 HR=54 bpm, MRSZ=807/70 mmhg, SpO2=95.0 %, Resp=95 B/min, Pain=0, Lilliam=10, Meza=2 11:09:04 The LCA was injected and visualized at various angles. OMNIPAQUE, 350 MG, 150ML 150ML used . 11:09:40 1 mg VERSED given in lab by Estuardo Gill, RN in Left Antecubital via Peripheral IV. Ordered by Priscilla Guerrero. 11:13:09 HR=56 bpm, HRMW=893/55 mmhg, SpO2=96.0 %, Resp=10 B/min, Pain=0, Lilliam=10, Meza=2 11:13:42 A WIRE, EXCHANGE 260CM 3MMJ 260CM was inserted via Fem Art (right). 11:13:49 Catheter was removed 11:14:33 Case End (Physician broke scrub) 11:14:45 Catheter(s) removed without difficulty 11:14:50 No case complications noted. Radial Compression Device Used. 15 mLs of air placed in BAND, RADIAL COMPRESSION TR LARGE 29 29 CM. Affected 11:14:51 hand 98 % O2 saturation. 11:17:51 Cine recording checked. 11:17:58 Bedside Report will be given. 11:17:59 A Left Heart Cath was performed. 11:18:02 HR=58 bpm, NIBP=99/54 mmhg, SpO2=97.0 %, Resp=10 B/min, Pain=0, Lilliam=10, Meza=2 Assessment: Final Case, HR=58 BPM, NIBP=99/54 mmhg, Edema=None, Color=Normal, Skin = Warm, Dry Right Pulses: José Antonio Ped=1, Femoral=3, Radial=3 11:20:15 Left Pulses: José Antonio Ped=1, Femoral=3 Neurological: State=Alert, Ox3, KOWALSKI Respiration: Resp=10 B/min, SpO2=97 % 11:20:20 Vitals capture stopped. 11:24:29 Patient moved to [facility] End Study - Contrast Media Used In Study Contrast Total Opened (mL) Total Used (mL) Total Wasted (mL) Omnipaque 75 75 0 End Study - Maximum Contrast Load Max Contrast Load (mL) 334.5 End Study - Radiation Exposure Fluoro Time (minutes) 2.4 End Study - Patient Disposition Complications Transferred To Telemetry Bed
--- NOTE | 2018-09-28 11:29 | P.CONCA ---
History of Present Illness Primary Care Provider: John Crandall MD Chief Complaint: Elevated blood pressure History of Present Illness: Very pleasant 73 year old male with a past medical history of HTN, HLD, CAD with prior stent to the LAD who presented with L sided chest pain that began while bowling. He underwent a Lexiscan which showed evidence of anterior ischemia. He is not always 100% compliant with all of his medications. He had negative cardiac enzymes. No ongoing chest pain currently. Review of Systems All other systems reviewed negative except as stated in [facility] - History History Provided By: Patient - Medical History Medical History: Medical History (Last Updated 09/27/18 @ 08:11 by CYNTHIA Schneider) Carotid stenosis Chronic obstructive pulmonary disease Coronary artery disease History of CVA (cerebrovascular accident) History of kidney stones History of myocardial infarction Hyperlipidemia Hypertension Sleep apnea - Surgical History Surgical History: Surgical History (Last Updated 09/27/18 @ 08:14 by CYNTHIA Schneider) History of cardiac catheterization History of carotid endarterectomy History of heart artery stent History of left inguinal hernia repair History of right cataract surgery Stented coronary artery - Family History Family History: Family History (Last Updated 09/27/18 @ 08:15 by CYNTHIA Schneider) Mother Family history of Alzheimer's disease Brother Family history of kidney disease - Tobacco History Second Hand Smoke Exposure: No Tobacco Use In Past 30 Days: No Smoking Status: Never smoker - Alcohol History How Often Do You Have a Drink Containing Alcohol: Never - Substance Use History Substance History: No History of Abuse - Travel History Recent Travel in the [place] Within the Last 8 Weeks: No Recent Travel Out of the Country Within the Last 8 Weeks: No - Immunization History Tetanus Immunization: Unsure Medications and Allergies Active Medications: Active Medications Amlodipine Besylate (Norvasc) 2.5 mg PO DAILY [facility] Last Admin: 09/28/18 08:48 Dose: Not Given Aspirin (Aspirin Chew) 81 mg PO DAILY [facility] Last Admin: 09/28/18 08:48 Dose: 81 mg Atorvastatin Calcium (Lipitor) 80 mg PO DAILY [facility] Last Admin: 09/28/18 08:47 Dose: 80 mg Clonidine HCl (Catapres) 0.2 mg PO PRN PRN PRN Reason: Blood Pressure Clopidogrel Bisulfate (Plavix) 75 mg PO DAILY [facility] Last Admin: 09/28/18 08:48 Dose: 75 mg Sodium Chloride (Ns Inj) 1,000 mls @ 30 mls/hr IV.CONT .Q24H [facility] Losartan Potassium (Cozaar) 25 mg PO DAILY [facility] Last Admin: 09/28/18 08:48 Dose: 25 mg Metoprolol Tartrate (Lopressor) 100 mg PO BID [facility] Last Admin: 09/28/18 08:48 Dose: Not Given Nitroglycerin (Nitro-Bid 2% Oint) 0.5 inch TOPICAL Q6HR [facility] Last Admin: 09/28/18 06:28 Dose: 0.5 inch Ondansetron HCl (Zofran Odt) 4 mg PO Q6H PRN PRN Reason: NAUSEA OR VOMITING Last Admin: 09/27/18 10:25 Dose: 4 mg Pantoprazole Sodium (Protonix) 40 mg PO DAILY [facility] Last Admin: 09/28/18 08:48 Dose: 40 mg Sertraline HCl (Zoloft) 25 mg PO DAILY [facility] Last Admin: 09/28/18 08:49 Dose: 25 mg Sodium Chloride (Ns Flush) 2 ml IV.FLUSH BID [facility] Last Admin: 09/28/18 08:50 Dose: 2 ml Sodium Chloride (Ns Flush) 2 ml IV.FLUSH PRN PRN PRN Reason: FLUSH AFTER USING IV ACCESS Allergies Allergy/AdvReac Type Severity Reaction Status Date / Time hydrocodone Allergy Severe Anaphylaxis Verified 09/27/18 03:44 acetaminophen Allergy Unknown Anaphylaxis Verified 09/27/18 03:44 oxycodone Allergy Unknown Anaphylaxis Verified 09/27/18 03:44 Home Medications Medication Instructions Recorded Confirmed Type amlodipine 2.5 mg PO DAILY 09/27/18 09/27/18 History aspirin 81 mg PO DAILY 09/27/18 09/27/18 History atorvastatin 80 mg PO DAILY 09/27/18 09/27/18 History clonidine HCl 0.2 mg PO PRN PRN 09/27/18 09/27/18 History clopidogrel 75 mg PO DAILY 09/27/18 09/27/18 History lorazepam 0.5 mg PO PRN PRN 09/27/18 09/27/18 History losartan 25 mg PO DAILY 09/27/18 09/27/18 History magnesium DAILY 09/27/18 History metoprolol tartrate 100 mg PO BID 09/27/18 09/27/18 History omeprazole 40 mg PO PRN PRN 09/27/18 09/27/18 History potassium gluconate 595 mg PO 09/27/18 History sertraline 25 mg PO DAILY 09/27/18 09/27/18 History Exam Vital signs: Vital Signs 09/27/18 12:00 09/27/18 16:00 09/27/18 20:00 Temperature 97.6 F 97.0 F L 97.3 F L Pulse Rate 61 55 L 59 L Respiratory Rate 17 16 18 Blood Pressure 108/57 L 111/56 L 81/50 L Pulse Oximetry 94 L 94 L 94 L 09/28/18 00:00 09/28/18 04:00 Temperature 97.7 F 96.5 F L Pulse Rate 54 L 57 L Respiratory Rate 18 18 Blood Pressure 99/53 L 137/74 Pulse Oximetry 95 93 L Intake & Output 09/27/18 09/28/18 09/28/18 18:59 06:59 18:59 Intake Total 480 / 480 300 / 300 Output Total 650 / 650 Balance 480 / 480 -350 / -350 Weight 73.6 kg Intake: Oral 480 / 480 300 / 300 Output: Urine 650 / 650 Other: # Voids 4 Date of Last Bowel Movement 09/26/18 # Bowel Movements 0 - Constitutional no acute distress - Routine HEENT Exam Head: Present: normocephalic Eye: Present: EOMI ENT: Present: mucous membranes moist - Routine Neck Exam Absent: JVD - Routine Chest/Breast/Axilla Exam Chest wall: Absent: tenderness - Routine Respiratory Exam Present: CTA bilaterally - Routine Cardiovascular Exam Present: RRR, S1, S2 - Routine Abdominal Exam Present: soft, normoactive bowel sounds. Absent: tenderness - Routine Extremities Exam Absent: edema - Routine Skin Exam Present: intact (tatoo present) - Routine Neurological Exam Present: alert, oriented X3 Results 09/27/18 04:00 09/27/18 04:00 Cardiac Enzymes 09/27/18 09/27/18 09/27/18 Range/Units 04:00 06:40 08:45 AST 24 (15-37) U/L Troponin I Less than 0.02 L Less than 0.02 L Less than 0.02 L (0.02-0.05) ng/mL Coagulation 09/27/18 Range/Units 04:00 PT 11.0 (9.8-11.6) sec Lipids 09/28/18 Range/Units 05:50 Triglycerides 77 (42-150) mg/dL Cholesterol 157 (120-200) mg/dL HDL Cholesterol 33.8 L (40.0-60.0) mg/dL Cholesterol/HDL Ratio 4.64 Ratio CBC 09/27/18 Range/Units 04:00 WBC 7.9 (4.0-11.0) th/mm3 RBC 4.29 L (4.50-5.90) mil/mm3 Hgb 14.4 (13.0-17.0) gm/dL Hct 42.0 (39.0-51.0) % Plt Count 212 (150-450) th/mm3 Neut # (Auto) 4.8 (1.8-7.7) th/mm3 Lymph # (Auto) 2.2 (1.0-4.8) th/mm3 [place] # (Auto) 0.7 (0.0-0.9) th/mm3 Eos # (Auto) 0.1 (0.0-0.4) th/mm3 Baso # (Auto) 0.1 (0.0-0.2) th/mm3 Comprehensive Metabolic Panel 09/27/18 Range/Units 04:00 Sodium 140 (136-145) meq/L Potassium 3.8 (3.5-5.1) meq/L Chloride 108 H (98-107) meq/L Carbon Dioxide 27.2 (21.0-32.0) meq/L BUN 18 (7-18) mg/dL Creatinine 1.10 (0.60-1.30) mg/dL Calcium 7.9 L (8.5-10.1) mg/dL AST 24 (15-37) U/L ALT 23 (12-78) U/L Alkaline Phosphatase 88 (45-117) U/L Total Protein 6.6 (6.4-8.2) g/dL Albumin 3.6 (3.4-5.0) g/dL Intake and Output 09/27/18 09/28/18 09/28/18 22:59 06:59 14:59 Intake Total 480 / 480 300 / 300 Output Total 650 / 650 Balance 480 / 480 -350 / -350 Intake: Oral 480 / 480 300 / 300 Output: Urine 650 / 650 Other: # Voids 4 # Bowel Movements 0 Weight 73.6 kg - Imaging and Cardiology Imaging: Impressions Myocardial Perfusion Scan Nuc Med 09/27/18 00:00 CONCLUSION: 1. Mild to moderate size area of stress-induced ischemia in the anterior septal wall. Chest X-Ray 09/27/18 03:51 CONCLUSION: No acute cardiopulmonary disease demonstrated. Assessment and Plan - Plan 73 year old with history of chest pain, HTN, HLD, and positive nuclear scan. Chest pain- given at least intermediate risk for CAD, will proceed with coronary angiography via the right radial artery Risks, benefits, and alternatives discussed with patient.
[2018-09-28] MEDS: Sod Chloride 0.9% Inj 1,000 ML IV.CONT SCH (15:28)
--- NOTE | 2018-09-28 17:22 | TR ---
Date Performed: 09/27/2018 Time Performed: 10:59:24 DOCTOR: Tangela Rivera DRUG LIST: CLINICAL HISTORY: REASON FOR TEST: REASON FOR ENDING: OBSERVATION: CONCLUSION: Lexiscan stress test was performed under standard four minute protocol. Radionuclid e was injected one minute prior to ending the test. No electrocardiographic abormalities were present to suggest ischemia. Nuclear imaging and interpretation are pending. COMMENTS: Lexiscan stress test was performed under standard four minute protocol. Radionuclide was injected one minute prior to ending the test. No electrocardiographic abormalities were present t o suggest ischemia. Nuclear imaging and interpretation are pending.
[2018-09-29] MEDS ORDERED: Isosorbide Mononitrate 30 MG ER 24HR Tablet (Imdur) PO SCH (07:00)
[2018-09-29 08:19] VITALS: RESP 16
[2018-09-29] MEDS: amLODIPine 5 MG Tablet PO SCH (09:23)
[2018-09-29] MEDS: Sertraline 50 MG Tablet PO SCH (09:24)
[2018-09-29] MEDS: Metoprolol Tartrate 50 MG Tablet PO SCH (09:25)
[2018-09-29] MEDS: Sod Chloride 0.9% Inj 1,000 ML IV.CONT SCH (09:41)
[2018-09-29 11:24] VITALS: BP 127/72; TEMP 98.3; O2SAT 95
--- NOTE | 2018-09-29 12:50 | P.DS ---
Date of admission: 09/27/18 05:08 Primary care physician: John Crandall MD Brief History from admission: 73-year-old male with known history of hypertension, hyperlipidemia, coronary disease, cardiac stenting, sleep apnea, chronic obstructive pulmonary disease who presented to the hospital for evaluation of elevated blood pressure. Patient states that his normal state of health last night and he went bowling with his [employer] league last evening. The patient presented with complaints of left-sided chest pain as well as a funny sensation on the left side of his face. He was subsequently admitted for chest pain. DS: Medications - Discharge Medications Prescriptions: isosorbide mononitrate 30 mg PO DAILY@0700 #30 tab DS: Summary Hospital Course: This patient is a 73-year-old male with a diagnosis of hypertension dyslipidemia, coronary artery disease status post stenting, COPD not on home oxygen. The patient presented to our emergency department with complaints of on one side of his face and and chest pain. He was found to have elevated blood pressure and was subsequently admitted for chest pain workup. 1. Chest pain unlikely cardiac The patient was evaluated in the emergency department. An EKG was done which showed normal sinus rhythm, left axis deviation, no acute ST segment or T wave changes. 3 sets of cardiac enzymes and troponins were negative. Chest x-ray was negative Cardiology was consulted to evaluate the patient. The patient underwent Lexiscan which showed mild to moderate sized area of stress-induced ischemia in the anterior septal wall. He subsequently underwent cardiac catheterization which showed 30% proximal lesion of the RCA, left main and left circumflex minimal luminal irregularities. The stent in the left anterior descending was widely patent and there was a small diagonal branch that was 100% occluded. Recommendations were for the patient to start Imdur for small vessel disease management. Medication compliance was discussed with the patient in detail. He states that he has all of his medications at home and he was given a prescription for Imdur. Continue aspirin, statin, beta-vashti, Imdur. He is now chest pain-free without any complaints of chest pain or shortness of breath on ambulation. He will be discharged home today. 2. Accelerated hypertension 3. Hypertension/dyslipidemia Initially the patient's systolic blood pressure was significantly elevated in the 200s as per documentation. After the initiation of antihypertensives and close monitoring the patient's blood pressure is now under control. Continue blood pressure medications and statin. He should follow-up with his primary care physician in the next 1-2 weeks. His blood pressure medications can be adjusted as needed. Currently blood pressure is under control. - Time Spent with Patient Total time spent providing and/or coordinating discharge services: Greater than 30 minutes - Quality: VTE Deep Vein Thrombosis/Pulmonary Embolism Present on Admission: No Exam Vital signs: Vital Signs 09/28/18 15:38 09/28/18 15:50 09/28/18 16:00 Temperature Pulse Rate 60 56 L 59 L Respiratory Rate 18 18 Blood Pressure 125/66 139/60 Pulse Oximetry 95 95 09/28/18 17:00 09/28/18 18:00 09/28/18 19:00 Temperature 98 F Pulse Rate 62 60 60 Respiratory Rate 18 Blood Pressure 120/63 Pulse Oximetry 92 L 09/28/18 23:00 09/29/18 00:00 09/29/18 01:00 Temperature Pulse Rate 62 62 60 Respiratory Rate 18 Blood Pressure Pulse Oximetry 09/29/18 02:00 09/29/18 03:00 09/29/18 04:00 Temperature 98 F Pulse Rate 64 93 H 62 Respiratory Rate 18 Blood Pressure 158/75 H Pulse Oximetry 96 09/29/18 05:00 09/29/18 06:00 09/29/18 07:00 Temperature 98.0 F Pulse Rate 58 L 57 L 66 Respiratory Rate 16 Blood Pressure 156/83 H Pulse Oximetry 96 09/29/18 08:00 09/29/18 09:00 09/29/18 10:00 Temperature Pulse Rate 56 L 58 L 60 Respiratory Rate Blood Pressure Pulse Oximetry 09/29/18 11:00 09/29/18 12:00 Temperature 98.3 F Pulse Rate 59 L 60 Respiratory Rate 16 Blood Pressure 127/72 Pulse Oximetry 95 Intake & Output 09/28/18 09/29/18 09/29/18 18:59 06:59 18:59 Intake Total 245 / 245 Output Total 360 / 360 Balance -115 / -115 Weight 73.1 kg Intake: IV 5 / 5 Heparin/NS PF Inj 1,000 ML @ 0 5 / 5 mls/hr .ROUTE .STK-MED ONE Rx#: [id number] Oral 240 / 240 Output: Urine 360 / 360 Other: # Voids 2 Date of Last Bowel Movement 09/27/18 Narrative: General patient in no acute distress, no complaints of chest pain, no shortness of breath HEENT extraocular movements are intact, clear oropharyngeal mucosa, no JVD Cardiovascular S1-S2 audible, RRR, no murmurs rubs or gallops, no chest pain Respiratory clear to auscultation bilaterally Abdomen soft, nontender, nondistended, normal bowel sounds Extremities no edema 2+ distal pulses in bilateral upper and lower extremities Neuro cranial nerves II through XII intact Results Procedures completed during hospitalization: Cardiac catheterization - Impressions ITS Impressions Myocardial Perfusion Scan Nuc Med 09/27/18 00:00 CONCLUSION: 1. Mild to moderate size area of stress-induced ischemia in the anterior septal wall. Chest X-Ray 09/27/18 03:51 CONCLUSION: No acute cardiopulmonary disease demonstrated. Discharge Plan - Discharge Disposition Patient Disposition: 01 Discharge Home - Discharge Condition Condition: Good - Discharge Order Discharge Orders: Discharge Order (Routine); Ordered 09/29/18 Ordered By: Shay Medeiros - Physicians Team Primary Care Provider: John Crandall Attending Provider: Shay Medeiros Other Providers: Brant Guo ; Priscilla Guerrero MD
[2018-09-29 13:05] VITALS: PULSE 71
--- NOTE | 2018-10-03 15:45 | P.CATH ---
- Cardiac Catheterization Procedure Date: 09/28/18 Procedure Note:: Preprocedure Dx: Chest Pain Positive Stress Test Postprocedure Dx: Nonobstructive CAD Procedures Performed: Coronary Angiography via the right radial artery Indications: In brief, Mr. Hathaway has a past medical history of coronary artery disease status prior PCI of the LAD who presented with chest pain and a positive stress test. See H and P for details. Description of the Procedure: After discussion of risks, benefits, and alternatives the patient was brought to the electroplating laborer in a non sedated state. He was sterilely prepped and draped in a usual fashion.1% lidocaine solution was used for anesthesia and we placed a 6F sheath into the right radial artery. We then used a JR4 to engage the RCA. This was exchanged for a JL 3.5 to engage the Left Main. Images obtained after contrast dye injection. Findings: Right Coronary: Dominant vessel giving rise to a Posterolateral Branch Artery and a Posterior Descending Artery. This vessel has minimal luminal irregularities present. Left Main: Moderate caliber vessel which bifurcates into a left anterior descending and a left circumflex. This vessel has minimal luminal irregularities. Left Anterior Descending: Moderate caliber vessel that courses distally to wrap around the apex giving rise to multiple diagonal branches. There is mild ostial disease of the first diagonal. There is a mild area of bridging in the mid LAD. The remainder of the vessel has minimal luminal irregularities. Left Circumflex: Moderate caliber vessel that courses distally within the AV grove, giving rise to multiple OM. There are minimal luminal irregularities. Procedural Summary: Nonobstructive CAD Widely patent previously placed stent within the LAD Plan: Continue medical management
== END 2018-09-29 13:35 | disposition home or self-care (01) ==
LOC: PHED 03:31 → PHEDA 03:31 → PH3 05:59 → HCIS 09-28 07:54
PROVIDERS: ADMIT Hospitalist; ATTEND Hospitalist